=== PATIENT | female | born 1950 | race Caucasian/White ===

== ENCOUNTER 2017-02-10 13:56 | Inpatient (IN) | payer MEDICARE ==
[~2017-02-10] VITALS: Ht 165.1 cm; Wt 64.0 kg
[~2017-02-10 13:56] MED LIST: ACET325T15 PO; ASPI-183 PO; ATOR20TA15 PO; COLA100C5 PO; FAMO1TAB37 PO; FAMO20TA2 PO; LIPI20TA PO; LISI10TA3 PO; MAG-LIQ PO; METO25TA3 PO; METO50TA PO; QUAD CANE/SMALL1 MI1; Shower Chair; TRANSPORT CHAIR1 MIS; TYLE325T PO; WHEEMIS3
[2017-02-10] MEDS ORDERED: GADODIAMIDE PF 287 MG/ML 20 ML VIAL (for RAD MRI) IVCONTRAST ONE (13:57)
[2017-02-10 13:59] VITALS: BP 115/56; PULSE 62; RESP 16; TEMP 98.2; O2SAT 95
--- NOTE | 2017-02-10 15:43 | PD ---
HPI Chief Complaint: Fall Time Seen by Provider: 15:19 Travel History International Travel<30 days: No Contact w/Intl Traveler<30days: No Traveled to known affect area: No History of Present Illness HPI 66-year-old female was brought in by family member for left-sided facial drooping, slurred speech, left arm left leg weakness. Patient was admitted to 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 Patient was discharged from the hospital and admitted to rehabilitation facility at [facility] on January 20. Patient was discharged from the rehabilitation facility on February 04 to home with home health care and physical occupation and speech therapy. Patient states that she tripped and fell yesterday morning. Patient states that she landed on her left shoulder. Patient denies head injury. Patient denies any headache. Patient denies any visual change. Patient denies any neck pain. Patient complains of weakness of the left arm and left leg since the fall. Patient denies any chest pain or shortness of breath. Patient denies abdominal pain. Patient denies any back pain. Patient denies any nausea vomiting. Patient states that after the stroke in the beginning of January, her left arm and left leg weakness much improved with physical therapy and rehabilitation however is worse since the fall yesterday. Patient states that she was able to ambulate by herself at home after discharge from rehabilitation. Patient states that she is unable to empty since yesterday. PFSH Past Medical History Arthritis: No Asthma: No Autoimmune Disease: No Anxiety: No Depression: No Heart Rhythm Problems: No Cancer: No Cardiovascular Problems: No High Cholesterol: No Chest Pain: No Congestive Heart Failure: No COPD: No Cerebrovascular Accident: Yes (LEFT SIDE DEFICIT) Diabetes: No Endocrine: No GERD: No Genitourinary: No Hiatal Hernia: No Immune Disorder: No Kidney Stones: No Musculoskeletal: No Neurologic: Yes Psychiatric: No Reproductive: Yes (Ectopic ) Respiratory: No Migraines: No Renal Failure: No Seizures: No Sleep Apnea: No Thyroid Disease: No Ulcer: No Past Surgical History Abdominal Surgery: Yes AICD: No Arteriovenous Shunt: No Body Medical Devices: n/a Cardiac Surgery: No Ear Surgery: No Endocrine Surgery: No Eye Surgery: No Genitourinary Surgery: No Gynecologic Surgery: Yes (Ectopic Preg) Insulin Pump: No Joint Replacement: No Oral Surgery: Yes (Extractions of Lignum teeth / Dentures Upper and Lower) Pacemaker: No Thoracic Surgery: No Social History Tobacco Use: No Substance Use: No Allergies-Medications (Allergen,Severity, Reaction): Coded Allergies: No Known Allergies (Verified , 02/10/17) Reported Meds & Prescriptions Reported Meds & Active Scripts Active Metoprolol Tartrate 25 Mg Tab 12.5 Mg PO BID 30 Days Reported Lisinopril 10 Mg Tab 10 Mg PO DAILY Pepcid (Famotidine) 20 Mg Tab 20 Mg PO BID Lipitor (Atorvastatin Calcium) 20 Mg Tab 20 Mg PO HS Aspirin 325 Mg Tab 325 Mg PO DAILY Review of Systems General / Constitutional: No: Fever Eyes: No: Visual changes HENT: No: Headaches Cardiovascular: No: Chest Pain or Discomfort Respiratory: No: Shortness of Breath Gastrointestinal: No: Abdominal Pain Genitourinary: No: Dysuria Musculoskeletal: Positive: Weakness, No: Pain Skin: No Rash Neurologic: No: Weakness Psychiatric: No: Depression Endocrine: No: Polydipsia Hematologic/Lymphatic: No: Easy Bruising Physical Exam Narrative GENERAL: Well-nourished, well-developed patient. SKIN: Focused skin assessment warm/dry. HEAD: Normocephalic. EYES: No scleral icterus. No injection or drainage. NECK: Supple, trachea midline. No JVD or lymphadenopathy. CARDIOVASCULAR: Regular rate and rhythm without murmurs, gallops, or rubs. RESPIRATORY: Breath sounds equal bilaterally. No accessory muscle use. GASTROINTESTINAL: Abdomen soft, non-tender, nondistended. MUSCULOSKELETAL: No cyanosis, or edema. BACK: Nontender without obvious deformity. No CVA tenderness. Neurologic exam: Patient's awake alert oriented 3. Patient has mild drooping on the left side of face, weakness of left arm and left leg. Unable to move much and left arm and left leg. Sensory function intact. Data Data Last Documented VS Vital Signs Date Time Temp Pulse Resp B/P (MAP) Pulse Ox O2 Delivery O2 Flow Rate FiO2 02/10/17 19:51 Room Air 02/10/17 19:07 59 15 96 02/10/17 13:59 98.2 Orders Orders Electrocardiogram (02/10/17 15:30) Complete Blood Count With Diff (02/10/17 15:30) Comprehensive Metabolic Panel (02/10/17 15:30) Prothrombin Time / Inr (Pt) (02/10/17 15:30) Act Partial Throm Time (Ptt) (02/10/17 15:30) Urinalysis - C+S If Indicated (02/10/17 15:30) Thyroid Stimulating Hormone (02/10/17 15:30) Chest, Single Ap (02/10/17 15:30) Ct Brain W/O Iv Contrast(Rout) (02/10/17 15:30) Iv Access Insert/Monitor (02/10/17 15:30) Ecg Monitoring (02/10/17 15:30) Oximetry (02/10/17 15:30) Mri Brain W/O Contrast (02/10/17 16:35) Mra Brain W/O Contrast (Cow) (02/10/17 16:35) Mra Carotids W Contrast (02/10/17 16:35) Gadodiamide Pf Inj (Omniscan Pf Inj) (02/10/17 13:57) Aspirin Chew (Aspirin Chew) (02/10/17 19:30) Consult Neurology (02/10/17 ) Admit Order (Ed Use Only) (02/10/17 19:19) (Hub Use Only)Inp Phy Cons/Ref (02/10/17 ) Clopidogrel (Plavix) (02/10/17 19:45) Clopidogrel (Plavix) (02/11/17 09:00) Atorvastatin (Lipitor) (02/10/17 21:00) Famotidine (Pepcid) (02/10/17 21:00) Place In Observation (02/10/17 ) Vital Signs (Adult) Q4H (02/10/17 20:10) Activity Bed Rest (02/10/17 20:10) Senior Sustainability Consultant / Telemetry .CONTINUOUS (02/10/17 20:10) Diet Npo (02/11/17 Breakfast) Sodium Chloride 0.9% Flush (Ns Flush) (02/10/17 20:15) Sodium Chloride 0.9% Flush (Ns Flush) (02/10/17 21:00) Acetaminophen (Tylenol) (02/10/17 20:15) Ondansetron Inj (Zofran Inj) (02/10/17 20:15) Resp Oxygen Keenan C Titrat 1-4 L (02/10/17 ) Pt Request For Service (02/10/17 20:10) Ot Request For Service (02/10/17 20:10) Speech Therapy Consult-Eval/Tx (02/10/17 20:10) Zolpidem (Ambien) (02/10/17 20:15) Heparin Inj (Heparin Inj) (02/11/17 08:15) Scd Bilateral/Knee High JORDY.BID (02/10/17 20:10) Jason Bilateral/Knee High JORDY.QSHIFT (02/10/17 22:00) Naloxone Inj (Narcan Inj) (02/10/17 20:15) Docusate Sodium-Senna (Magnolia-Colace) (02/10/17 21:00) Magnesium Hydroxide Liq (Milk Of Magnesi (02/10/17 20:15) Sennosides (Senokot) (02/10/17 20:15) Bisacodyl Supp (Dulcolax Supp) (02/10/17 20:15) Lactulose Liq (Lactulose Liq) (02/10/17 20:15) Labs Laboratory Tests Test 02/10/17 16:20 White Blood Count 8.1 TH/MM3 Red Blood Count 4.67 MIL/MM3 Hemoglobin 13.4 GM/DL Hematocrit 39.7 % Mean Corpuscular Volume 85.0 FL Mean Corpuscular Hemoglobin 28.7 PG Mean Corpuscular Hemoglobin Concent 33.8 % Red Cell Distribution Width 14.2 % Platelet Count 217 TH/MM3 Mean Platelet Volume 8.9 FL Neutrophils (%) (Auto) 66.9 % Lymphocytes (%) (Auto) 20.6 % Monocytes (%) (Auto) 9.9 % Eosinophils (%) (Auto) 1.8 % Basophils (%) (Auto) 0.8 % Neutrophils # (Auto) 5.4 TH/MM3 Lymphocytes # (Auto) 1.7 TH/MM3 Monocytes # (Auto) 0.8 TH/MM3 Eosinophils # (Auto) 0.1 TH/MM3 Basophils # (Auto) 0.1 TH/MM3 CBC Comment DIFF FINAL Differential Comment Prothrombin Time 10.7 SEC Prothromb Time International Ratio 1.0 RATIO Activated Partial Thromboplast Time 24.5 SEC Blood Urea Nitrogen 16 MG/DL Creatinine 0.97 MG/DL Random Glucose 90 MG/DL Total Protein 7.9 GM/DL Albumin 3.8 GM/DL Calcium Level 8.9 MG/DL Alkaline Phosphatase 115 U/L Aspartate Amino Transf (AST/SGOT) 16 U/L Alanine Aminotransferase (ALT/SGPT) 20 U/L Total Bilirubin 0.7 MG/DL Sodium Level 138 MEQ/L Potassium Level 4.3 MEQ/L Chloride Level 102 MEQ/L Carbon Dioxide Level 28.7 MEQ/L Anion Gap 7 MEQ/L Estimat Glomerular Filtration Rate 57 ML/MIN Thyroid Stimulating Hormone 3rd Gen 1.400 uIU/ML MDM Medical Decision Making Medical Screen Exam Complete: Yes Emergency Medical Condition: Yes Interpretation(s) [address] scan of the brain show area of low attenuation right frontal lobe could be subacute infarct. MRI recommended. Chest x-ray showed minimal right basilar atelectasis. Differential Diagnosis Differential diagnosis including acute on chronic CVA, intracranial hemorrhage. Narrative Course 66-year-old female with new-onset of left-sided facial drooping, mild slurring speech, left arm left leg weakness. History of right hemisphere CVA in the past. Status post fall yesterday. Increasing symptoms since yesterday. Diagnosis Primary Impression: Acute cerebrovascular accident (CVA) Олег Calderon MD Feb 10, 2017 15:43
--- NOTE | 2017-02-10 15:53 | RADRPT ---
EXAM DATE/TIME: 02/10/2017 15:45 [facility] COMPARISON: No previous studies available for comparison. INDICATIONS : Short of breath, possible CVA. MEDICAL HISTORY : None. SURGICAL HISTORY : None. ENCOUNTER: Initial ACUITY: 1 day PAIN SCORE: 0/10 LOCATION: Bilateral chest FINDINGS: A single view of the chest demonstrates minimal linear density right lung base. Left lung clear. Hear t normal in size. Mediastinum unremarkable. Osseous structures are intact. CONCLUSION: 1. Minimal right basilar atelectasis. Arnie Lacy MD on February 10, 2017 at 15:47 Board Certified Radiologist. This report was verified electronically.
--- NOTE | 2017-02-10 16:07 | RADRPT ---
EXAM DATE/TIME: 02/10/2017 15:57 [facility] COMPARISON: No previous studies available for comparison. INDICATIONS : Head pain due to fall. RADIATION DOSE: 32.93 CTDIvol (mGy) MEDICAL HISTORY : Hypertension. Cerebrovascular disease. SURGICAL HISTORY : None. ENCOUNTER: Initial ACUITY: 2 days PAIN SCALE: 4/10 LOCATION: Bilateral cranial TECHNIQUE: Multiple contiguous axial images were obtained of the head. Using automated exposure control and adj ustment of the mA and/or kV according to patient size, radiation dose was kept as low as reasonably a chievable to obtain optimal diagnostic quality images. DICOM format image data is available electro nically for review and comparison. FINDINGS: CEREBRUM: Areas of low attenuation throughout the right frontal lobe. No significant mass effect or midline carol ft. Ventricles are patent. No evidence of midline shift, mass lesion, hemorrhage. No extra-axial fl uid collections are seen. POSTERIOR FOSSA: The cerebellum and brainstem are intact. The 4th ventricle is midline. The cerebellopontine angle i s unremarkable. EXTRACRANIAL: The visualized portion of the orbits is intact. SKULL: The calvaria is intact. No evidence of skull fracture. CONCLUSION: 1. Areas of low attenuation in the right frontal lobe could be subacute infarct. Contrast MRI recomme nded. 2. No midline shift or mass effect. 3. No hemorrhage seen. Arnie Lacy MD on February 10, 2017 at 16:03 Board Certified Radiologist. This report was verified electronically.
[2017-02-10 16:28] VITALS: O2SAT 98
[2017-02-10 16:45] LABS: AUTOMATED NEUTROPHIL # 5.4 TH/MM3 (1.8-7.7); BASOPHIL # 0.1 TH/MM3 (0-0.2); BASOPHIL % 0.8 % (0.0-2.0); EOSINOPHIL # 0.1 TH/MM3 (0-0.4); EOSINOPHIL % 1.8 % (0.0-4.0); HEMATOCRIT 39.7 % (35.0-46.0); HEMOGLOBIN 13.4 GM/DL (11.6-15.3); LYMPH % 20.6 % (9.0-44.0); LYMPHOCYTE # 1.7 TH/MM3 (1.0-4.8); MEAN CORPUSCULAR HEMOGLOBIN 28.7 PG (27.0-34.0); MEAN CORPUSCULAR HGB CONC 33.8 % (32.0-36.0); MEAN PLATELET VOLUME 8.9 FL (7.0-11.0); MONO % 9.9 % (0.0-8.0); MONOCYTE # 0.8 TH/MM3 (0-0.9); NEUT % 66.9 % (16.0-70.0); PLATELET COUNT 217 TH/MM3 (150-450); RED BLOOD COUNT 4.67 MIL/MM3 (4.00-5.30); RED CELL DISTRIBUTION WIDTH 14.2 % (11.6-17.2); WHITE BLOOD COUNT 8.1 TH/MM3 (4.0-11.0)
[2017-02-10 16:53] LABS: PROTHROMBIN TIME - PATIENT 10.7 SEC (9.8-11.6)
[2017-02-10 17:00] LABS: ALBUMIN 3.8 GM/DL (3.4-5.0); ALT (GPT) 20 U/L (10-53); AST (GOT) 16 U/L (15-37); BICARBONATE 28.7 MEQ/L (21.0-32.0); BLOOD UREA NITROGEN 16 MG/DL (7-18); CALCIUM 8.9 MG/DL (8.5-10.1); CHLORIDE 102 MEQ/L (98-107); CREATININE 0.97 MG/DL (0.50-1.00); GLOMERULAR FILTRATION RATE 57 ML/MIN (>89); GLUCOSE,RANDOM 90 MG/DL (74-106); SODIUM (NA) 138 MEQ/L (136-145)
[2017-02-10 17:10] LABS: ALKALINE PHOSPHATASE 115 U/L (45-117); TOTAL BILIRUBIN ADULT 0.7 MG/DL (0.2-1.0); TOTAL PROTEIN 7.9 GM/DL (6.4-8.2)
--- NOTE | 2017-02-10 17:29 | PD ---
Physical Exam Date Seen by Provider: Feb 10, 2017 Data Data Last Documented VS Vital Signs Date Time Temp Pulse Resp B/P (MAP) Pulse Ox O2 Delivery O2 Flow Rate FiO2 02/10/17 19:07 59 15 133/62 (85) 96 Room Air 02/10/17 13:59 98.2 Orders Orders Electrocardiogram (02/10/17 15:30) Complete Blood Count With Diff (02/10/17 15:30) Comprehensive Metabolic Panel (02/10/17 15:30) Prothrombin Time / Inr (Pt) (02/10/17 15:30) Act Partial Throm Time (Ptt) (02/10/17 15:30) Urinalysis - C+S If Indicated (02/10/17 15:30) Thyroid Stimulating Hormone (02/10/17 15:30) Chest, Single Ap (02/10/17 15:30) Ct Brain W/O Iv Contrast(Rout) (02/10/17 15:30) Iv Access Insert/Monitor (02/10/17 15:30) Ecg Monitoring (02/10/17 15:30) Oximetry (02/10/17 15:30) Mri Brain W/O Contrast (02/10/17 16:35) Mra Brain W/O Contrast (Cow) (02/10/17 16:35) Mra Carotids W Contrast (02/10/17 16:35) Gadodiamide Pf Inj (Omniscan Pf Inj) (02/10/17 13:57) Aspirin Chew (Aspirin Chew) (02/10/17 19:30) Consult Neurology (02/10/17 ) Admit Order (Ed Use Only) (02/10/17 19:19) Labs Laboratory Tests Test 02/10/17 16:20 White Blood Count 8.1 TH/MM3 Red Blood Count 4.67 MIL/MM3 Hemoglobin 13.4 GM/DL Hematocrit 39.7 % Mean Corpuscular Volume 85.0 FL Mean Corpuscular Hemoglobin 28.7 PG Mean Corpuscular Hemoglobin Concent 33.8 % Red Cell Distribution Width 14.2 % Platelet Count 217 TH/MM3 Mean Platelet Volume 8.9 FL Neutrophils (%) (Auto) 66.9 % Lymphocytes (%) (Auto) 20.6 % Monocytes (%) (Auto) 9.9 % Eosinophils (%) (Auto) 1.8 % Basophils (%) (Auto) 0.8 % Neutrophils # (Auto) 5.4 TH/MM3 Lymphocytes # (Auto) 1.7 TH/MM3 Monocytes # (Auto) 0.8 TH/MM3 Eosinophils # (Auto) 0.1 TH/MM3 Basophils # (Auto) 0.1 TH/MM3 CBC Comment DIFF FINAL Differential Comment Prothrombin Time 10.7 SEC Prothromb Time International Ratio 1.0 RATIO Activated Partial Thromboplast Time 24.5 SEC Blood Urea Nitrogen 16 MG/DL Creatinine 0.97 MG/DL Random Glucose 90 MG/DL Total Protein 7.9 GM/DL Albumin 3.8 GM/DL Calcium Level 8.9 MG/DL Alkaline Phosphatase 115 U/L Aspartate Amino Transf (AST/SGOT) 16 U/L Alanine Aminotransferase (ALT/SGPT) 20 U/L Total Bilirubin 0.7 MG/DL Sodium Level 138 MEQ/L Potassium Level 4.3 MEQ/L Chloride Level 102 MEQ/L Carbon Dioxide Level 28.7 MEQ/L Anion Gap 7 MEQ/L Estimat Glomerular Filtration Rate 57 ML/MIN Thyroid Stimulating Hormone 3rd Gen 1.400 uIU/ML MDM Medical Record Reviewed: Yes Supervised Visit with JOSE: No Narrative Course Patient signed out to me by Dr. Calderon at change of shift. Please see previous records for full hpi and workup of patient Patient currently pending MRI of brain and admission to hospital. Patient currently with no complaints at this time. Last Impressions Head Magnetic Resonance Angiography 02/10/171634 Signed Impressions: Service Date/Time: February 18:08 - CONCLUSION: 1. There is no flow in the right middle cerebral artery and its distal branches. 2. Portions of the right anterior communicating artery are abnormal and not visualized as well. 3. There is no right posterior communicating artery. 4. The left posterior cerebral artery is smaller in size than the right and the distal posterior branches are absent. Dariusz Mora MD Brain MRI 02/10/17 1635 Signed Impressions: Service Date/Time: February 18:08 - CONCLUSION: 1. Acute to subacute infarction involving the right middle cerebral artery territory with edema. There is no mass effect or midline shift. 2. No evidence of hemorrhage. Dariusz Mora MD Head CT 02/10/17 1530 Signed Impressions: Service Date/Time: February 15:57 - CONCLUSION: 1. Areas of low attenuation in the right frontal lobe could be subacute infarct. Contrast MRI recommended. 2. No midline shift or mass effect. 3. No hemorrhage seen. Arnie Lacy MD Chest X-Ray 02/10/17 1530 Signed Impressions: Service Date/Time: February 15:45 - CONCLUSION: 1. Minimal right basilar atelectasis. Arnie Lacy MD MRI of brain concerning for an acute distress. Infarction in the right middle cerebral artery with edema. Patient will be given an asa, she will require admission to the hospital at this time. case reviewed with Dr. Chang who accepts pt to service. Request neurology consult and input tonight. Call made to Dr. Rudolph who is insulation machine operator. Case reviewed with Dr. Rudolph who request patient be placed on plavix 75bpm, Critical Care Narrative Aggregate critical care time was 30 minutes. Time to perform other separately billable procedures was not included in the critical care time. My time did not include minutes spent treating any other patients simultaneously or on activities that did not directly contribute to the patient's treatment. The services I provided to this patient were to treat and/or prevent clinically significant deterioration that could result in: , decompensation, deterioration I provided critical care services requiring my management, as noted below: Chart data review, documentation time, medication orders and management, vital sign assessments/reviewing monitor data, ordering and reviewing lab tests, ordering and interpreting/reviewing x-rays and diagnostic studies, care of the patient and discussion of the patient with the admitting physicians. Diagnosis Primary Impression: Acute cerebrovascular accident (CVA) Additional Impression: Occlusion of right middle cerebral artery Admitting Information Admitting Physician Requests: Admit Lilia Montgomery DO Feb 10, 2017 17:29
--- NOTE | 2017-02-10 18:39 | RADRPT ---
EXAM DATE/TIME: 02/10/2017 18:08 [facility] COMPARISON: No previous studies available for comparison. INDICATIONS : Cerebral vascular accident with left-sided weakness. Abnormal head CT.. MEDICAL HISTORY : Hypertension. SURGICAL HISTORY : Ectopic . ENCOUNTER: Initial ACUITY: 1 day PAIN SCORE: 0/10 LOCATION: Head. TECHNIQUE: Multiplanar, multisequence MRI of the brain was performed without contrast. FINDINGS: CEREBRUM: The ventricles are normal for age. No evidence of midline shift, mass lesion, or hemorrhage. No ext raaxial fluid collections are seen. The pituitary gland and suprasellar cistern are normal in config uration. WHITE MATTER: Increased signal is noted on the flair weighted images the right middle cerebral artery territory con sistent with edema. POSTERIOR FOSSA: The cerebellum and brainstem are intact. The 4th ventricle is midline. The cerebellopontine angle is unremarkable. The cerebellar tonsils are normal in position. DIFFUSION IMAGING: There is a large area of restricted diffusion involving the right middle cerebral artery territory in volving portions of the posterior right frontal lobe and parietal lobe as well as portions of the lat eral right basal ganglia. EXTRACRANIAL: The visualized portions of the orbits and paranasal sinuses are unremarkable. CONCLUSION: 1. Acute to subacute infarction involving the right middle cerebral artery territory with edema. Ther e is no mass effect or midline shift. 2. No evidence of hemorrhage. Dariusz Mora MD on February 10, 2017 at 18:34 Board Certified Radiologist. This report was verified electronically.
--- NOTE | 2017-02-10 18:44 | RADRPT ---
EXAM DATE/TIME: 02/10/2017 18:08 [place]RE[place] Corrected on: February 10, 2017; [facility] COMPARISON: No previous studies available for comparison. INDICATIONS : CVA. Left sided weakness. MEDICAL HISTORY : Hypertension. SURGICAL HISTORY : Ectopic . ENCOUNTER: Initial ACUITY: 1 day PAIN SCORE: 0/10 LOCATION: Head. Please note a normal MRA of the brain does not entirely exclude the possibility of a small aneurysm, nor the possibility of distal intracranial vessel disease. TECHNIQUE: 3D time of flight MRA was performed. Source images, multiplanar STS MIP, and 3D volume MIP reconstru ctions were reviewed. FINDINGS: There is occlusion of the right internal carotid artery as well as the right middle cerebral artery. The right anterior communicating artery is abnormal in the anterior portion is missing.. There is no right posterior communicating artery. The left anterior commuting artery and middle cerebral artery a re intact. The anterior cerebral arteries are symmetric and intact. The right posterior cerebral lauren ry is intact. The left is smaller in size as lacking the more posterior distal branches. There is no visualized aneurysm. CONCLUSION: 1. Occlusion of the right internal carotid artery and right middle cerebral artery. 2. Portions of the right anterior communicating artery are abnormal 3. There is no right posterior communicating artery. 4. The left posterior cerebral artery is smaller in size than the right and the distal posterior bran ches are absent. Dariusz Mora MD on February 10, 2017 at 18:37 Board Certified Radiologist. This report was verified electronically. Dariusz Mora MD on February 10, 2017 at 19:39 Board Certified Radiologist. This report was verified electronically.
[2017-02-10 19:07] VITALS: BP 133/62; PULSE 59; RESP 15; O2SAT 96
[2017-02-10] MEDS ORDERED: ASPIRIN 81 MG CHEW TAB CHEW ONE (19:30)
--- NOTE | 2017-02-10 19:39 | RADRPT ---
EXAM DATE/TIME: 02/10/2017 18:08 [facility] COMPARISON: MRA BRAIN W/O CONTRAST, February 10, 2017, 18:08. INDICATIONS : . Right middle cerebral artery infarct with left-sided weakness.. CONTRAST: 20 cc Omniscan (gadodiamide) IV MEDICAL HISTORY : Hypertension. SURGICAL HISTORY : Ectopic . ENCOUNTER: Initial ACUITY: 1 day PAIN SCORE: 0/10 LOCATION: Head. Percent stenosis is calculated using the diameter of the stenotic region over the diameter of the nor mal distal internal carotid artery. TECHNIQUE: Bolus infused MRA of the extracranial circulation was performed using a neurovascular coil. Post pro cessing was performed including rotating subvolume maximum intensity projections of each carotid lauren ry, rotating full volume maximum intensity projections of both carotid arteries, sagittal and coronal sliding thin slab reformations of each carotid artery, and left oblique sliding thin slab reformatio n through the aortic arch to include the origin of the arch branch vessels. FINDINGS: AORTIC ARCH: There is a three vessel origin of the great vessels from the aorta. No evidence of ostial narrowing. RIGHT CAROTID: The common carotid artery is intact. The carotid bulb has a normal configuration without ulceration or narrowing. The right internal carotid artery is occluded just after its origin. The external carot id artery is intact. LEFT CAROTID: The common carotid artery is intact. The carotid bulb demonstrates mild to moderate lobular plaque w ith approximate 50% diameter stenosis. The internal carotid artery lumen is smooth without stenosis. The external carotid artery is intact. VERTEBRALS: The vertebral arteries have a symmetric diameter. No stenotic lesions are seen. CONCLUSION: 1. Occlusion of the right internal carotid artery right after the origin. 2. Mild to moderate plaque in left common carotid artery with approximate 50% stenosis. 3. Please see MRA of the brain for further details on the intracranial circulation. Dariusz Mora MD on February 10, 2017 at 19:32 Board Certified Radiologist. This report was verified electronically.
[2017-02-10] MEDS ORDERED: CLOPIDOGREL 75 MG TAB PO ONE (19:45)
[2017-02-10] MEDS ORDERED: MAGNESIUM HYDROXIDE SUSP 30 ML CUP PO PRN (20:15)
[2017-02-10] MEDS ORDERED: LACTULOSE SYRUP 20 GM/30 ML CUP PO PRN (20:15)
[2017-02-10] MEDS ORDERED: ONDANSETRON HCL 4 MG/2 ML VIAL IVP PRN (20:15)
[2017-02-10] MEDS ORDERED: ACETAMINOPHEN 325 MG TAB PO PRN (20:15)
[2017-02-10] MEDS ORDERED: ZOLPIDEM TARTRATE 5 MG TAB PO PRN (20:15)
[2017-02-10] MEDS ORDERED: BISACODYL 10 MG SUPP RECTAL PRN (20:15)
[2017-02-10] MEDS ORDERED: SODIUM CHLORIDE 0.9% FLUSH 10 ML FLUSH IV FLUSH PRN (20:15)
[2017-02-10] MEDS ORDERED: NALOXONE HCL 0.4 MG/ML AMP IV PUSH PRN (20:15)
[2017-02-10] MEDS ORDERED: SENNOSIDES 8.6 MG TAB PO PRN (20:15)
[2017-02-10] MEDS ORDERED: LORazepam 0.5 MG TAB PO PRN (20:30)
[2017-02-10] MEDS ORDERED: ACETAMINOPHEN/HYDROcodone 325 MG/5 MG TAB PO PRN (20:30)
[2017-02-10] MEDS: SODIUM CHLORIDE 0.9% FLUSH 10 ML FLUSH IV FLUSH SCH (22:32)
[2017-02-10] MEDS: ATORVASTATIN 20 MG TAB PO SCH (22:32)
[2017-02-10] MEDS: FAMOTIDINE 20 MG TAB PO SCH (22:32)
[2017-02-10] MEDS: DEXT 5%-NACL 0.45% 1000 ML INJ 1,000 ML IV SCH (22:33)
[2017-02-10] MEDS: DOCUSATE SODIUM 50 MG/SENNA 8.6 MG TAB PO SCH (22:33)
[2017-02-10 22:52] VITALS: PULSE 63
[2017-02-11] VITALS (11 sets, daily range): BP systolic 121–145; BP diastolic 57–68; PULSE 50–77; RESP 16–20; TEMP 97.6–98.2; O2SAT 94–96
[2017-02-11 07:17] LABS: BASOPHIL % 0.9 % (0.0-2.0); EOSINOPHIL # 0.2 TH/MM3 (0-0.4); EOSINOPHIL % 2.6 % (0.0-4.0); HEMATOCRIT 35.6 % (35.0-46.0); HEMOGLOBIN 12.1 GM/DL (11.6-15.3); LYMPH % 31.8 % (9.0-44.0); LYMPHOCYTE # 1.8 TH/MM3 (1.0-4.8); MEAN CELL VOLUME 84.7 FL (80.0-100.0); MEAN CORPUSCULAR HEMOGLOBIN 28.7 PG (27.0-34.0); MEAN CORPUSCULAR HGB CONC 33.9 % (32.0-36.0); MONO % 12.6 % (0.0-8.0); MONOCYTE # 0.7 TH/MM3 (0-0.9); NEUT % 52.1 % (16.0-70.0); PLATELET COUNT 169 TH/MM3 (150-450); RED BLOOD COUNT 4.21 MIL/MM3 (4.00-5.30); WHITE BLOOD COUNT 5.8 TH/MM3 (4.0-11.0)
[2017-02-11 07:57] LABS: BICARBONATE 26.8 MEQ/L (21.0-32.0); CALCIUM 8.8 MG/DL (8.5-10.1); CREATININE 0.71 MG/DL (0.50-1.00)
[2017-02-11] MEDS: FAMOTIDINE 20 MG TAB PO SCH ×2 (08:12→21:24)
[2017-02-11] MEDS: HEPARIN SODIUM - SQ 10,000 UNITS/ML VIAL SQ SCH ×2 (08:13→21:23)
[2017-02-11] MEDS: CLOPIDOGREL 75 MG TAB PO SCH (08:13)
[2017-02-11] MEDS: DOCUSATE SODIUM 50 MG/SENNA 8.6 MG TAB PO SCH ×2 (08:13→21:24)
[2017-02-11] MEDS: SODIUM CHLORIDE 0.9% FLUSH 10 ML FLUSH IV FLUSH SCH ×2 (08:13→21:23)
--- NOTE | 2017-02-11 10:04 | EKG ---
Date Performed: 02/10/2017 Time Performed: 16:12:25 PTAGE: 66 years EKG: SINUS BRADYCARDIA SEPTAL MYOCARDIAL INFARCTION ABNORMAL ECG NO PREVIOUS TRACING DOCTOR: Marin Chavarria Interpretating Date/Time 02/11/2017 10:03:36
--- NOTE | 2017-02-11 10:06 | EKG ---
Date Performed: 02/10/2017 Time Performed: 19:57:22 PTAGE: 66 years EKG: SINUS BRADYCARDIA LEFT AXIS DEVIATION ABNORMAL ECG PREVIOUS TRACING : 02/10/2017 16.12 Compared to prior tracing no significant change DOCTOR: Marin Chavarria Interpretating Date/Time 02/11/2017 10:04:49
--- NOTE | 2017-02-11 10:22 | MH ---
cc: LANE EVERETT MD DATE OF ADMISSION 02/10/2017 CHIEF COMPLAINT Fall and left-sided weakness. HISTORY OF PRESENT ILLNESS Everette Magana is a 66-year-old female recently discharged from [facility] after having a right hemisphere CVA. She was discharged on 02/03/2017 and continued on aspirin and statin and AFO. She unfortunately yesterday morning fell and noted increased left-sided weakness on top of the area that was already weak on the left side. She presented to [place] emergency room and I was thus called for admission. She was found to have slurred speech and the emergency room physician spoke with the neurologist and he ordered Plavix. CT scan showed a subacute infarct. Further images as noted below. The patient states that she now has worsened left-sided weakness. She complains of some shoulder soreness. States she quit smoking a few weeks ago. Brain MRI shows acute to subacute infarction. Head MRA shows occlusion of the right internal carotid artery, left cerebral artery is smaller in size. Neck MRI shows occlusion of the right internal carotid artery and plaquing with approximately 50% stenosis. Chest x-ray shows minimal right basilar atelectasis. LABORATORY DATA BMP is normal. GFR 82. CBC within normal limits. INR 1.0. PAST MEDICAL HISTORY 1. Right hemisphere CVA 2. Left hemiparesis 3. Carotid stenosis 4. Hypertension 5. Tobacco abuse 6. Gait instability 7. Diastolic CHF SOCIAL HISTORY She quit cigarettes a couple of weeks ago. No alcohol or illicit drug usage. FAMILY HISTORY States her father had heart disease, otherwise noncontributory on her family history. HOME MEDICATIONS 1. Aspirin 325 daily 2. Atorvastatin 20 3. Famotidine 4. Lisinopril 10 5. Metoprolol tartrate 12.5 b.i.d. 6. Nitroglycerin p.r.n. REVIEW OF SYSTEMS Increased left-sided hemiparesis and generalized weakness. Negative 14-point review of systems otherwise. PHYSICAL EXAM VITAL SIGNS: Temperature 98.2, pulse 58, respirations 20, blood pressure 126/57, O2 is 95% on room air. GENERAL: She is alert elderly female sitting at a slight incline. She is alert. She is does seem to have some right-sided gaze preference. HEENT: Oropharynx is clear. NECK: Carotids are normal on the left with normal upstroke. CARDIOVASCULAR: Regular rate and rhythm. No murmurs, rubs, clicks or gallops. ABDOMEN: Soft, nontender. EXTREMITIES: No edema. SKIN: Clear. NEUROLOGIC: Cranial nerves are grossly intact. Left hemiparesis with strength of 1/5 on the right side is 3/5. EXTREMITIES: No edema. ASSESSMENT 1. Acute CVA 2. Left hemiparesis 3. Hypertension 4. Carotid artery disease 5. Smoker, recently quit. PLAN 1. Observation admission. The patient likely will discharge if okay with neurology may be tomorrow. 2. N.p.o. for now until seen by speech therapy. 3. D5 IV fluids 4. A.m. CBC and BMP 5. Urinalysis 6. Permissive hypertension 7. Start Plavix 75 mg daily 8. Lipitor 20 mg at bedtime 9. GI prophylaxis with Pepcid b.i.d. 10. DVT prophylaxis heparin 5000 units subcu q.12 h. 11. Telemetry 12. Physical therapy 13. Occupational therapy 14. Speech therapy 15. Neurology consult 16. The patient states that Dr. Correa has just seen her. 17. We will follow as an outpatient. Lane Everett MD RP/TRICIA /9:46 AM /10:07 AM
--- NOTE | 2017-02-11 15:12 | MB ---
cc: HERNÁN DAN MD DATE OF CONSULTATION: 02/11/2017. REASON FOR CONSULTATION: Stroke. HISTORY OF PRESENT ILLNESS: Ms. Magana is a 66-year-old female who suffered from a stroke on January 13 with right MCA stroke with left-sided weakness upper and lower extremities. She was discharged to [facility] and continued on aspirin and statin. Yesterday morning she fell and noted increased left-sided weakness and was noted by a family member to have slurred speech and face droop. Head CT scan showed a subacute infarct and Plavix was added to her regime. She also complains of some left-sided shoulder pain. REVIEW OF SYSTEMS: A twelve-point review of systems was negative except as stated in the history of present illness. PAST MEDICAL HISTORY: 1. Recent right MCA stroke. 2. Carotid artery occlusion. 3. Hypertension. 4. Tobacco abuse. 5. Gait instability. 6. Congestive heart failure. PAST SURGICAL HISTORY: Noncontributory. HOME MEDICATIONS: 1. Aspirin. 2. Statin. 3. Famotidine. 4. Lisinopril. 5. Metoprolol. 6. Nitroglycerin. SOCIAL HISTORY: She quit cigarette smoking two weeks ago. Denies alcohol or illicit drug abuse. FAMILY HISTORY: Father with heart disease. PHYSICAL EXAMINATION: GENERAL: Awake, alert, oriented and good historian. Not in acute distress. HEAD, EYES, EARS, NOSE, THROAT: Normocephalic and atraumatic. Intact hearing. Intact vision. NECK: The neck is supple. No signs of meningeal irritation. CARDIOVASCULAR: Regular rate and rhythm. RESPIRATORY: Clear to auscultation. No wheezes. GASTROINTESTINAL: The abdomen is soft, nontender. EXTREMITIES: Weakness on the entire left side upper and lower extremities. No cyanosis. No clubbing. NEUROLOGICAL EXAMINATION: Awake, alert and oriented to time, person and place. No dysphasia. Positive for dysarthria. Left facial palsy. Intact facial sensation. Left upper and lower extremity pyramidal spastic weakness, upper extremities greater than lower extremities. Left Babinski. Right plantar downgoing. Reflexes 2+ bilateral symmetrical. Cerebellar function intact, slower on the left side. Intact sensation bilateral throughout. PSYCHIATRIC: Cooperative. Normal mood and behavior. DIAGNOSTIC TESTS: DIAGNOSTIC IMAGING: - Head CT scan without contrast revealed areas of low attenuation in the right frontal lobe which could be a subacute infarct, contrast MRI recommended. No midline shift. No hemorrhage seen. - Brain MRI without contrast revealed acute to subacute infarction involving the right middle cerebral artery territory with edema. There is no mass effect or midline shift. No evidence of hemorrhage. - Head MRA without contrast revealed occlusion of the right ICA and right middle cerebral artery. Portions of the right anterior communicating artery are abnormal. There is no right ANIMAL SITTER. The left ANIMAL SITTER is smaller in size than the right and the distal posterior branches are absent. - Neck MRA revealed occlusion of the right ICA after the origin. Mild to moderate plaque left common carotid artery with approximate 50% stenosis. LABS: White blood cells 5.8, hemoglobin 12.1. Potassium 135, sodium 139, BUN 14, creatinine 0.71. TSH 1.4. DIAGNOSTIC IMPRESSION: 1. Acute ischemic stroke. 2. History of remote acute ischemic stroke. 3. Right carotid artery and MCA occlusion. PLAN: 1. Neuro checks q. 1 hourly. 2. Allow permissive hypertension. 3. Treat for blood pressure greater than 220/110. 4. Physical therapy, occupational therapy and speech therapy. 5. Allow for permissive hypertension for the next 24 hours. 6. DVT prophylaxis. 7. Physical therapy and occupational therapy recommendations are appreciated. 8. Repeat CT next a.m. or if there is change in the neurologic status. Thank you for the opportunity to participate in the care of your patient. MD BHARTI Fraser/EMILE /2:12 PM /2:59 PM STANLEY
[2017-02-11] MEDS: ATORVASTATIN 20 MG TAB PO SCH (21:23)
[2017-02-11] MEDS: DEXT 5%-NACL 0.45% 1000 ML INJ 1,000 ML IV SCH (21:23)
[2017-02-12] VITALS (12 sets, daily range): BP systolic 122–170; BP diastolic 65–89; PULSE 20–91; RESP 18–20; TEMP 97.6–98.2; O2SAT 95–99
[2017-02-12 07:38] LABS: AUTOMATED NEUTROPHIL # 2.4 TH/MM3 (1.8-7.7); BASOPHIL % 0.9 % (0.0-2.0); EOSINOPHIL # 0.1 TH/MM3 (0-0.4); EOSINOPHIL % 2.7 % (0.0-4.0); HEMOGLOBIN 12.5 GM/DL (11.6-15.3); LYMPH % 36.7 % (9.0-44.0); LYMPHOCYTE # 1.9 TH/MM3 (1.0-4.8); MEAN CELL VOLUME 84.1 FL (80.0-100.0); MEAN CORPUSCULAR HEMOGLOBIN 28.3 PG (27.0-34.0); MEAN CORPUSCULAR HGB CONC 33.7 % (32.0-36.0); MEAN PLATELET VOLUME 8.7 FL (7.0-11.0); MONO % 12.4 % (0.0-8.0); MONOCYTE # 0.6 TH/MM3 (0-0.9); NEUT % 47.3 % (16.0-70.0); PLATELET COUNT 172 TH/MM3 (150-450); RED BLOOD COUNT 4.41 MIL/MM3 (4.00-5.30); RED CELL DISTRIBUTION WIDTH 13.9 % (11.6-17.2); WHITE BLOOD COUNT 5.1 TH/MM3 (4.0-11.0)
[2017-02-12 07:52] LABS: BICARBONATE 27.4 MEQ/L (21.0-32.0); CALCIUM 8.9 MG/DL (8.5-10.1); CREATININE 0.73 MG/DL (0.50-1.00)
[2017-02-12] MEDS: SODIUM CHLORIDE 0.9% FLUSH 10 ML FLUSH IV FLUSH SCH ×2 (09:00→21:00)
[2017-02-12] MEDS: CLOPIDOGREL 75 MG TAB PO SCH (10:52)
[2017-02-12] MEDS: FAMOTIDINE 20 MG TAB PO SCH ×2 (10:52→21:08)
[2017-02-12] MEDS: DOCUSATE SODIUM 50 MG/SENNA 8.6 MG TAB PO SCH ×2 (10:52→21:08)
[2017-02-12] MEDS: HEPARIN SODIUM - SQ 10,000 UNITS/ML VIAL SQ SCH ×2 (11:04→21:09)
--- NOTE | 2017-02-12 12:25 | HHI.PR ---
Review/Management Diagnosis 1. Acute ischemic stroke. 2. History of remote acute ischemic stroke. 3. Right carotid artery and MCA occlusion. Plan - Stable neurologic exam - Goal BP 130-135/75-80 - Aspirin 81mg daily - Plavix 75 mg daily - Resume home BP medications - Physical therapy, occupational therapy and speech therapy, recommendations are appreciated. - Patient needs inpatient rehab - Follow up with neurology as outpatient Diagnosis/Plan: Subjective Subjective Comments No acute events reported Denies headache, worsening weakness States that she feels better, denies facial numbness MRI brain revealed right MCA acute/subacute ischemia Active Medications Current Medications Medications (Trade) Dose Ordered Sig/Bebo Route Start Time Stop Time Status Last Admin (Plavix) 75 mg DAILY PO 02/11/17 09:00 02/12/17 10:52 (Lipitor) 20 mg HS PO 02/10/17 21:00 02/11/17 21:23 (Pepcid) 20 mg BID PO 02/10/17 21:00 02/12/17 10:52 (NS Flush) 2 ml UNSCH PRN IV FLUSH 02/10/17 20:15 (NS Flush) 2 ml BID IV FLUSH 02/10/17 21:00 02/11/17 21:23 (Tylenol) 650 mg Q4H PRN PO 02/10/17 20:15 (Zofran Inj) 4 mg Q6H PRN IVP 02/10/17 20:15 (Ambien) 5 mg HS PRN PO 02/10/17 20:15 (Heparin Inj) 5,000 units Q12H SQ 02/11/17 08:15 02/12/17 11:04 (Narcan Inj) 0.4 mg UNSCH PRN IV PUSH 02/10/17 20:15 (Magnolia-Colace) 1 tab BID PO 02/10/17 21:00 02/12/17 10:52 (Milk Of Magnesia Liq) 30 ml Q12H PRN PO 02/10/17 20:15 (Senokot) 17.2 mg Q12H PRN PO 02/10/17 20:15 (Dulcolax Supp) 10 mg DAILY PRN RECTAL 02/10/17 20:15 (Lactulose Liq) 30 ml DAILY PRN PO 02/10/17 20:15 (Ativan) 0.5 mg Q8H PRN PO 02/10/17 20:30 Dextrose/Sodium Chloride 1,000 ml @ 42 mls/hr [id number] IV 02/10/17 21:00 02/11/17 21:23 (Cheyenne 5-325 Mg) 1 tab Q4H PRN PO 02/10/17 20:30 Allergies Allergies Coded Allergies No Known Allergies ([id number]/2/17) Review of Systems All other ROS: ROS reviewed as documented in chart Exam I&O / VS Vital Signs Date Time Temp Pulse Resp B/P (MAP) Pulse Ox O2 Delivery O2 Flow Rate FiO2 02/12/17 11:44 97.9 78 20 125/82 (96) 97 02/12/17 09:00 98 21 02/12/17 07:49 98.2 68 18 128/80 (96) 96 02/12/17 04:51 21 02/12/17 04:41 97.7 78 19 122/65 (84) 97 02/12/17 04:00 91 02/12/17 00:18 72 02/12/17 00:16 97.6 80 18 133/66 (88) 95 02/11/17 21:32 97.6 77 18 145/68 (93) 96 02/11/17 20:02 69 02/11/17 15:17 58 02/11/17 12:39 72 Exam Comments GENERAL: Awake, alert, oriented and good historian. Not in acute distress. HEAD, EYES, EARS, NOSE, THROAT: Normocephalic and atraumatic. Intact hearing. Intact vision. NECK: The neck is supple. No signs of meningeal irritation. CARDIOVASCULAR: Regular rate and rhythm. RESPIRATORY: Clear to auscultation. No wheezes. GASTROINTESTINAL: The abdomen is soft, nontender. EXTREMITIES: Weakness on the entire left side upper and lower extremities. No cyanosis. No clubbing. NEUROLOGICAL EXAMINATION: Awake, alert and oriented to time, person and place. No dysphasia. mild dysarthria. Left facial palsy. Intact facial sensation. Left upper and lower extremity pyramidal spastic weakness, upper extremities greater than lower extremities. Left Babinski. Right plantar downgoing. Reflexes 2+ bilateral symmetrical. Cerebellar function intact, slower on the left side. Intact sensation bilateral throughout. PSYCHIATRIC: Cooperative. Normal mood and behavior. Objective Radiology Results Last 72 hours Impressions Neck Magnetic Resonance Angiography 02/10/17 1635 Signed Impressions: Service Date/Time: February 18:08 - CONCLUSION: 1. Occlusion of the right internal carotid artery right after the origin. 2. Mild to moderate plaque in left common carotid artery with approximate 50%% stenosis. 3. Please see MRA of the brain for further details on the intracranial circulation. Dariusz Mora MD Head Magnetic Resonance Angiography 02/10/17 1635 Signed Impressions: Service Date/Time: February 18:08 - CONCLUSION: 1. Occlusion of the right internal carotid artery and right middle cerebral artery. 2. Portions of the right anterior communicating artery are abnormal 3. There is no right posterior communicating artery. 4. The left posterior cerebral artery is smaller in size than the right and the distal posterior branches are absent. Dariusz Mora MD Brain MRI 02/10/17 1635 Signed Impressions: Service Date/Time: February 18:08 - CONCLUSION: 1. Acute to subacute infarction involving the right middle cerebral artery territory with edema. There is no mass effect or midline shift. 2. No evidence of hemorrhage. Dariusz Mora MD Head CT 02/10/17 1530 Signed Impressions: Service Date/Time: February 15:57 - CONCLUSION: 1. Areas of low attenuation in the right frontal lobe could be subacute infarct. Contrast MRI recommended. 2. No midline shift or mass effect. 3. No hemorrhage seen. Arnie Lacy MD Chest X-Ray 02/10/17 1530 Signed Impressions: Service Date/Time: February 15:45 - CONCLUSION: 1. Minimal right basilar atelectasis. Arnie Lacy MD Micro and Labs Laboratory Tests Test 02/12/17 06:20 White Blood Count 5.1 Red Blood Count 4.41 Hemoglobin 12.5 Hematocrit 37.0 Mean Corpuscular Volume 84.1 Mean Corpuscular Hemoglobin 28.3 Mean Corpuscular Hemoglobin Concent 33.7 Red Cell Distribution Width 13.9 Platelet Count 172 Mean Platelet Volume 8.7 Neutrophils (%) (Auto) 47.3 Lymphocytes (%) (Auto) 36.7 Monocytes (%) (Auto) 12.4 Eosinophils (%) (Auto) 2.7 Basophils (%) (Auto) 0.9 Neutrophils # (Auto) 2.4 Lymphocytes # (Auto) 1.9 Monocytes # (Auto) 0.6 Eosinophils # (Auto) 0.1 Basophils # (Auto) 0.0 CBC Comment DIFF FINAL Differential Comment Blood Urea Nitrogen 9 Creatinine 0.73 Random Glucose 102 Calcium Level 8.9 Sodium Level 141 Potassium Level 3.6 Chloride Level 105 Carbon Dioxide Level 27.4 Anion Gap 9 Estimat Glomerular Filtration Rate 80 Mckayla Correa MD Feb 12, 2017 12:25
--- NOTE | 2017-02-12 12:56 | HHI.PR ---
Subjective Remarks Patient seen and examined this morning. Afebrile vital signs stable. She is status post CVA, with the recommendations of inpatient rehabilitation. She was recently discharged from [facility] while at home she fell prior to this admission upon evaluation by OT and PT is recommended that she return to [facility] for continued inpatient physical therapy. Objective Vitals Vital Signs Date Time Temp Pulse Resp B/P (MAP) Pulse Ox O2 Delivery O2 Flow Rate FiO2 02/12/17 11:44 97.9 78 20 125/82 (96) 97 02/12/17 09:00 98 21 02/12/17 07:49 98.2 68 18 128/80 (96) 96 02/12/17 04:51 21 02/12/17 04:41 97.7 78 19 122/65 (84) 97 02/12/17 04:00 91 02/12/17 00:18 72 02/12/17 00:16 97.6 80 18 133/66 (88) 95 02/11/17 21:32 97.6 77 18 145/68 (93) 96 02/11/17 20:02 69 02/11/17 15:17 58 Result Diagram: 02/12/17 0620 02/12/17 0620 Imaging Last Impressions Neck Magnetic Resonance Angiography 02/10/171634 Signed Impressions: Service Date/Time: February 18:08 - CONCLUSION: 1. Occlusion of the right internal carotid artery right after the origin. 2. Mild to moderate plaque in left common carotid artery with approximate 50%% stenosis. 3. Please see MRA of the brain for further details on the intracranial circulation. Dariusz Mora MD Head Magnetic Resonance Angiography 02/10/171634 Signed Impressions: Service Date/Time: February 18:08 - CONCLUSION: 1. Occlusion of the right internal carotid artery and right middle cerebral artery. 2. Portions of the right anterior communicating artery are abnormal 3. There is no right posterior communicating artery. 4. The left posterior cerebral artery is smaller in size than the right and the distal posterior branches are absent. Dariusz Mora MD Brain MRI 02/10/171634 Signed Impressions: Service Date/Time: February 18:08 - CONCLUSION: 1. Acute to subacute infarction involving the right middle cerebral artery territory with edema. There is no mass effect or midline shift. 2. No evidence of hemorrhage. Dariusz Mora MD Head CT 02/10/170 Signed Impressions: Service Date/Time: February 15:57 - CONCLUSION: 1. Areas of low attenuation in the right frontal lobe could be subacute infarct. Contrast MRI recommended. 2. No midline shift or mass effect. 3. No hemorrhage seen. Arnie Lacy MD Chest X-Ray 02/10/171529 Signed Impressions: Service Date/Time: February 15:45 - CONCLUSION: 1. Minimal right basilar atelectasis. Arnie Lcay MD Objective Remarks GENERAL: Awake, alert, oriented and good historian. Not in acute distress. HEAD, EYES, EARS, NOSE, THROAT: Normocephalic and atraumatic. Intact hearing. Intact vision. NECK: The neck is supple. No signs of meningeal irritation. CARDIOVASCULAR: Regular rate and rhythm. RESPIRATORY: Clear to auscultation. No wheezes. GASTROINTESTINAL: The abdomen is soft, nontender. EXTREMITIES: Weakness on the entire left side upper and lower extremities. No cyanosis. No clubbing. NEUROLOGICAL EXAMINATION: Awake, alert and oriented to time, person and place. No dysphasia. mild dysarthria. Left facial palsy. Intact facial sensation. Left upper and lower extremity pyramidal spastic weakness, upper extremities greater than lower extremities. Cerebellar function intact, slower on the left side. Intact sensation bilateral throughout. PSYCHIATRIC: Cooperative. Normal mood and behavior. A/P Problem List: (1) Occlusion of right middle cerebral artery ICD Code: I66.01 - Occlusion and stenosis of right middle cerebral artery Status: Acute (2) Acute cerebrovascular accident (CVA) ICD Code: I63.9 - Cerebral infarction, unspecified Status: Acute (3) Impaired mobility and activities of daily living ICD Code: Z74.09 - Other reduced mobility Status: Acute (4) Gait instability ICD Code: R26.81 - Unsteadiness on feet Status: Acute (5) Right hemisphere, cerebral infarction ICD Code: I63.9 - Cerebral infarction, unspecified Status: Acute (6) Fall ICD Code: W19.XXXA - Unspecified fall, initial encounter Status: Resolved Assessment and Plan This is a 66-year-old female with a recent right hemisphere CVA. She was recently discharged from [facility]. While at home she fell and was admitted back to the hospital. Both PT and OT are not recommending that she return to [facility] for continued inpatient physical therapy. Occlusion of right middle cerebral artery * Admitted to inpatient * Case management consulted for placement to [facility] for inpatient rehabilitation * Continue home blood pressure medications * Blood pressure goal 130-135/75-80 * Continue Plavix * Continue aspirin * continue telemetry * PT OT following * Neurology consulted, recommendations appreciated Discharged to [facility] case management consulted for this placement Marin Arce MD, R3 Feb 12, 2017 12:56
--- NOTE | 2017-02-12 12:56 | HHI.PR ---
Subjective Remarks Patient seen and examined this morning. Afebrile vital signs stable. She is status post CVA, with the recommendations of inpatient rehabilitation. She was recently discharged from [facility] while at home she fell prior to this admission upon evaluation by OT and PT is recommended that she return to [facility] for continued inpatient physical therapy. Objective Vitals Vital Signs Date Time Temp Pulse Resp B/P (MAP) Pulse Ox O2 Delivery O2 Flow Rate FiO2 02/12/17 11:44 97.9 78 20 125/82 (96) 97 02/12/17 09:00 98 21 02/12/17 07:49 98.2 68 18 128/80 (96) 96 02/12/17 04:51 21 02/12/17 04:41 97.7 78 19 122/65 (84) 97 02/12/17 04:00 91 02/12/17 00:18 72 02/12/17 00:16 97.6 80 18 133/66 (88) 95 02/11/17 21:32 97.6 77 18 145/68 (93) 96 02/11/17 20:02 69 02/11/17 15:17 58 Result Diagram: 02/12/17 0620 02/12/17 0620 Imaging Last Impressions Neck Magnetic Resonance Angiography 02/10/171634 Signed Impressions: Service Date/Time: February 18:08 - CONCLUSION: 1. Occlusion of the right internal carotid artery right after the origin. 2. Mild to moderate plaque in left common carotid artery with approximate 50%% stenosis. 3. Please see MRA of the brain for further details on the intracranial circulation. Dariusz Mora MD Head Magnetic Resonance Angiography 02/10/171634 Signed Impressions: Service Date/Time: February 18:08 - CONCLUSION: 1. Occlusion of the right internal carotid artery and right middle cerebral artery. 2. Portions of the right anterior communicating artery are abnormal 3. There is no right posterior communicating artery. 4. The left posterior cerebral artery is smaller in size than the right and the distal posterior branches are absent. Dariusz Mora MD Brain MRI 02/10/171634 Signed Impressions: Service Date/Time: February 18:08 - CONCLUSION: 1. Acute to subacute infarction involving the right middle cerebral artery territory with edema. There is no mass effect or midline shift. 2. No evidence of hemorrhage. Dariusz Mora MD Head CT 02/10/170 Signed Impressions: Service Date/Time: February 15:57 - CONCLUSION: 1. Areas of low attenuation in the right frontal lobe could be subacute infarct. Contrast MRI recommended. 2. No midline shift or mass effect. 3. No hemorrhage seen. Arnie Lacy MD Chest X-Ray 02/10/171529 Signed Impressions: Service Date/Time: February 15:45 - CONCLUSION: 1. Minimal right basilar atelectasis. Arnie Lacy MD Objective Remarks GENERAL: Awake, alert, oriented and good historian. Not in acute distress. HEAD, EYES, EARS, NOSE, THROAT: Normocephalic and atraumatic. Intact hearing. Intact vision. NECK: The neck is supple. No signs of meningeal irritation. CARDIOVASCULAR: Regular rate and rhythm. RESPIRATORY: Clear to auscultation. No wheezes. GASTROINTESTINAL: The abdomen is soft, nontender. EXTREMITIES: Weakness on the entire left side upper and lower extremities. No cyanosis. No clubbing. NEUROLOGICAL EXAMINATION: Awake, alert and oriented to time, person and place. No dysphasia. mild dysarthria. Left facial palsy. Intact facial sensation. Left upper and lower extremity pyramidal spastic weakness, upper extremities greater than lower extremities. Cerebellar function intact, slower on the left side. Intact sensation bilateral throughout. PSYCHIATRIC: Cooperative. Normal mood and behavior. A/P Problem List: (1) Occlusion of right middle cerebral artery ICD Code: I66.01 - Occlusion and stenosis of right middle cerebral artery Status: Acute (2) Acute cerebrovascular accident (CVA) ICD Code: I63.9 - Cerebral infarction, unspecified Status: Acute (3) Impaired mobility and activities of daily living ICD Code: Z74.09 - Other reduced mobility Status: Acute (4) Gait instability ICD Code: R26.81 - Unsteadiness on feet Status: Acute (5) Right hemisphere, cerebral infarction ICD Code: I63.9 - Cerebral infarction, unspecified Status: Acute (6) Fall ICD Code: W19.XXXA - Unspecified fall, initial encounter Status: Resolved Assessment and Plan This is a 66-year-old female with a recent right hemisphere CVA. She was recently discharged from [facility]. While at home she fell and was admitted back to the hospital. Both PT and OT are not recommending that she return to [facility] for continued inpatient physical therapy. Occlusion of right middle cerebral artery * Admitted to inpatient * Case management consulted for placement to [facility] for inpatient rehabilitation * Continue home blood pressure medications * Blood pressure goal 130-135/75-80 * Continue Plavix * Continue aspirin * continue telemetry * PT OT following * Neurology consulted, recommendations appreciated Discharged to [facility] case management consulted for this placement Marin Arce MD, R3 Feb 12, 2017 12:56
[2017-02-12] MEDS: DEXT 5%-NACL 0.45% 1000 ML INJ 1,000 ML IV SCH (17:32)
[2017-02-12] MEDS ORDERED: cloNIDine HCL 0.1 MG TAB PO PRN (18:15)
[2017-02-12] MEDS: LISINOPRIL 10 MG TAB PO SCH (18:20)
[2017-02-12] MEDS: METOPROLOL TARTRATE 25 MG TAB PO SCH (21:08)
[2017-02-12] MEDS: ATORVASTATIN 20 MG TAB PO SCH (21:08)
[2017-02-13] VITALS (9 sets, daily range): BP systolic 123–160; BP diastolic 56–78; PULSE 55–78; RESP 18–20; TEMP 97.7–98.6; O2SAT 93–96
[2017-02-13] MEDS: DOCUSATE SODIUM 50 MG/SENNA 8.6 MG TAB PO SCH ×2 (07:08→21:15)
[2017-02-13] MEDS: HEPARIN SODIUM - SQ 10,000 UNITS/ML VIAL SQ SCH ×2 (07:56→21:05)
[2017-02-13] MEDS: SODIUM CHLORIDE 0.9% FLUSH 10 ML FLUSH IV FLUSH SCH ×2 (07:56→21:15)
[2017-02-13] MEDS: FAMOTIDINE 20 MG TAB PO SCH ×2 (07:57→21:04)
[2017-02-13] MEDS: CLOPIDOGREL 75 MG TAB PO SCH (07:57)
[2017-02-13] MEDS: METOPROLOL TARTRATE 25 MG TAB PO SCH ×2 (07:57→21:04)
[2017-02-13] MEDS: LISINOPRIL 10 MG TAB PO SCH (07:57)
[2017-02-13 09:46] LABS: AUTOMATED NEUTROPHIL # 2.7 TH/MM3 (1.8-7.7); BASOPHIL # 0.1 TH/MM3 (0-0.2); BASOPHIL % 0.9 % (0.0-2.0); EOSINOPHIL # 0.2 TH/MM3 (0-0.4); EOSINOPHIL % 3.2 % (0.0-4.0); HEMATOCRIT 37.8 % (35.0-46.0); HEMOGLOBIN 12.6 GM/DL (11.6-15.3); LYMPH % 33.1 % (9.0-44.0); LYMPHOCYTE # 1.8 TH/MM3 (1.0-4.8); MEAN CELL VOLUME 84.9 FL (80.0-100.0); MEAN CORPUSCULAR HEMOGLOBIN 28.4 PG (27.0-34.0); MEAN CORPUSCULAR HGB CONC 33.4 % (32.0-36.0); MEAN PLATELET VOLUME 8.8 FL (7.0-11.0); MONO % 12.8 % (0.0-8.0); MONOCYTE # 0.7 TH/MM3 (0-0.9); PLATELET COUNT 178 TH/MM3 (150-450); RED BLOOD COUNT 4.45 MIL/MM3 (4.00-5.30); WHITE BLOOD COUNT 5.3 TH/MM3 (4.0-11.0)
[2017-02-13 10:48] LABS: BICARBONATE 25.1 MEQ/L (21.0-32.0); CREATININE 0.63 MG/DL (0.50-1.00)
--- NOTE | 2017-02-13 11:50 | HHI.PR ---
Subjective Remarks Patient seen and examined this morning. Afebrile vital signs stable. Current plan is to discharge to intermediate facility family is evaluating the [facility] nursing facility. Patient is unable to go to [facility] due to her time there being used up on her insurance. Case management is working with patient and family for placement to intermediate facility. It is currently the recommendations of both PT and OT that she do inpatient rehabilitation. Objective Vitals Vital Signs Date Time Temp Pulse Resp B/P (MAP) Pulse Ox O2 Delivery O2 Flow Rate FiO2 02/13/17 08:33 55 02/13/17 08:00 97.8 62 18 127/60 (82) 95 02/13/17 07:44 93 21 02/13/17 05:21 97.7 59 18 123/56 (78) 95 02/13/17 00:25 98.0 59 18 125/58 (80) 02/12/17 21:08 72 02/12/17 20:53 98.1 85 20 136/75 (95) 98 02/12/17 17:39 98.0 91 18 170/86 (114) 99 02/12/17 15:50 97.9 74 18 164/79 (107) 96 Result Diagram: 02/13/1740 02/13/17839 Imaging Last Impressions Neck Magnetic Resonance Angiography 02/10/171634 Signed Impressions: Service Date/Time: February 18:08 - CONCLUSION: 1. Occlusion of the right internal carotid artery right after the origin. 2. Mild to moderate plaque in left common carotid artery with approximate 50%% stenosis. 3. Please see MRA of the brain for further details on the intracranial circulation. Dariusz Mora MD Head Magnetic Resonance Angiography 02/10/171634 Signed Impressions: Service Date/Time: February 18:08 - CONCLUSION: 1. Occlusion of the right internal carotid artery and right middle cerebral artery. 2. Portions of the right anterior communicating artery are abnormal 3. There is no right posterior communicating artery. 4. The left posterior cerebral artery is smaller in size than the right and the distal posterior branches are absent. Dariusz Mora MD Brain MRI 02/10/171634 Signed Impressions: Service Date/Time: February 18:08 - CONCLUSION: 1. Acute to subacute infarction involving the right middle cerebral artery territory with edema. There is no mass effect or midline shift. 2. No evidence of hemorrhage. Dariusz Mora MD Head CT 02/10/171529 Signed Impressions: Service Date/Time: February 15:57 - CONCLUSION: 1. Areas of low attenuation in the right frontal lobe could be subacute infarct. Contrast MRI recommended. 2. No midline shift or mass effect. 3. No hemorrhage seen. Arnie Lacy MD Chest X-Ray 02/10/171529 Signed Impressions: Service Date/Time: February 15:45 - CONCLUSION: 1. Minimal right basilar atelectasis. Arnie Lacy MD Objective Remarks GENERAL: Awake, alert, oriented and good historian. Not in acute distress. HEAD, EYES, EARS, NOSE, THROAT: Normocephalic and atraumatic. Intact hearing. Intact vision. NECK: The neck is supple. No signs of meningeal irritation. CARDIOVASCULAR: Regular rate and rhythm. RESPIRATORY: Clear to auscultation. No wheezes. GASTROINTESTINAL: The abdomen is soft, nontender. EXTREMITIES: Weakness on the entire left side upper and lower extremities. No cyanosis. No clubbing. NEUROLOGICAL EXAMINATION: Awake, alert and oriented to time, person and place. No dysphasia. mild dysarthria. Left facial palsy. Intact facial sensation. Left upper and lower extremity pyramidal spastic weakness, upper extremities greater than lower extremities. Cerebellar function intact, slower on the left side. Intact sensation bilateral throughout. PSYCHIATRIC: Cooperative. Normal mood and behavior. Medications and IVs Current Medications Medications (Trade) Dose Ordered Sig/Bebo Route Start Time Stop Time Status Last Admin (Plavix) 75 mg DAILY PO 02/11/17 09:00 02/13/17 07:57 (Lipitor) 20 mg HS PO 02/10/17 21:00 02/12/17 21:08 (Pepcid) 20 mg BID PO 02/10/17 21:00 02/13/17 07:57 (NS Flush) 2 ml UNSCH PRN IV FLUSH 02/10/17 20:15 (NS Flush) 2 ml BID IV FLUSH 02/10/17 21:00 02/11/17 21:23 (Tylenol) 650 mg Q4H PRN PO 02/10/17 20:15 (Zofran Inj) 4 mg Q6H PRN IVP 02/10/17 20:15 (Ambien) 5 mg HS PRN PO 02/10/17 20:15 (Heparin Inj) 5,000 units Q12H SQ 02/11/17 08:15 02/13/17 07:56 (Narcan Inj) 0.4 mg UNSCH PRN IV PUSH 02/10/17 20:15 (Magnolia-Colace) 1 tab BID PO 02/10/17 21:00 02/12/17 21:08 (Milk Of Magnesia Liq) 30 ml Q12H PRN PO 02/10/17 20:15 (Senokot) 17.2 mg Q12H PRN PO 02/10/17 20:15 (Dulcolax Supp) 10 mg DAILY PRN RECTAL 02/10/17 20:15 (Lactulose Liq) 30 ml DAILY PRN PO 02/10/17 20:15 (Ativan) 0.5 mg Q8H PRN PO 02/10/17 20:30 Dextrose/Sodium Chloride 1,000 ml @ 42 mls/hr [id number] IV 02/10/17 21:00 02/12/17 17:32 ([place] 5-325 Mg) 1 tab Q4H PRN PO 02/10/17 20:30 (Prinivil) 10 mg DAILY PO 02/12/17 18:15 02/13/17 07:57 (Lopressor) 12.5 mg BID PO 02/12/17 21:00 02/13/17 07:57 (Catapres) 0.1 mg Q6H PRN PO 02/12/17 18:15 A/P Problem List: (1) Occlusion of right middle cerebral artery ICD Code: I66.01 - Occlusion and stenosis of right middle cerebral artery Status: Acute (2) Acute cerebrovascular accident (CVA) ICD Code: I63.9 - Cerebral infarction, unspecified Status: Acute (3) Impaired mobility and activities of daily living ICD Code: Z74.09 - Other reduced mobility Status: Acute (4) Gait instability ICD Code: R26.81 - Unsteadiness on feet Status: Acute (5) Right hemisphere, cerebral infarction ICD Code: I63.9 - Cerebral infarction, unspecified Status: Acute (6) Fall ICD Code: W19.XXXA - Unspecified fall, initial encounter Status: Resolved Assessment and Plan This is a 66-year-old female with a recent right hemisphere CVA. She was recently discharged from [facility]. While at home she fell and was admitted back to the hospital. Both PT and OT are now recommending that she return to [facility] for continued inpatient physical therapy. Unfortunately patient has used up all of her days for [place] [facility] and cannot return there. It is currently the plan to discharge to intermediate facility, patient's family is evaluating facility in [place]. Occlusion of right middle cerebral artery * Admitted to inpatient * Case management consulted for placement to intermediate facility * Continue home blood pressure medications * Clonidine when necessary per protocol * Blood pressure goal 130-135/75-80 * Continue Plavix * Continue aspirin * continue telemetry * PT OT following * Neurology consulted, recommendations appreciated Discharged to intermediate facility for inpatient rehabilitation, case management consulted for this placement Discharge Planning Discharge to intermediate facility once placement is available, case management is working on this Marin Arce MD, R3 Feb 13, 2017 11:50
--- NOTE | 2017-02-13 11:50 | HHI.PR ---
Subjective Remarks Patient seen and examined this morning. Afebrile vital signs stable. Current plan [facility] to [facility] to [facility] family is evaluating the [facility] nursing facility. Patient is unable to go to [facility] due to her time there being used up on her insurance. Case management is working with patient and family for placement to penitentiary facility. It is currently the recommendations of both PT and OT that she do inpatient rehabilitation. Objective Vitals Vital Signs Date Time Temp Pulse Resp B/P (MAP) Pulse Ox O2 Delivery O2 Flow Rate FiO2 02/13/17 08:33 55 02/13/17 08:00 97.8 62 18 127/60 (82) 95 02/13/17 07:44 93 21 02/13/17 05:21 97.7 59 18 123/56 (78) 95 02/13/17 00:25 98.0 59 18 125/58 (80) 02/12/17 21:08 72 02/12/17 20:53 98.1 85 20 136/75 (95) 98 02/12/17 17:39 98.0 91 18 170/86 (114) 99 02/12/17 15:50 97.9 74 18 164/79 (107) 96 Result Diagram: 02/13/1740 02/13/17839 Imaging Last Impressions Neck Magnetic Resonance Angiography 02/10/171634 Signed Impressions: Service Date/Time: February 18:08 - CONCLUSION: 1. Occlusion of the right internal carotid artery right after the origin. 2. Mild to moderate plaque in left common carotid artery with approximate 50%% stenosis. 3. Please see MRA of the brain for further details on the intracranial circulation. Dariusz Mora MD Head Magnetic Resonance Angiography 02/10/171634 Signed Impressions: Service Date/Time: February 18:08 - CONCLUSION: 1. Occlusion of the right internal carotid artery and right middle cerebral artery. 2. Portions of the right anterior communicating artery are abnormal 3. There is no right posterior communicating artery. 4. The left posterior cerebral artery is smaller in size than the right and the distal posterior branches are absent. Dariusz Mora MD Brain MRI 02/10/171634 Signed Impressions: Service Date/Time: February 18:08 - CONCLUSION: 1. Acute to subacute infarction involving the right middle cerebral artery territory with edema. There is no mass effect or midline shift. 2. No evidence of hemorrhage. Dariusz Mora MD Head CT 02/10/171529 Signed Impressions: Service Date/Time: February 15:57 - CONCLUSION: 1. Areas of low attenuation in the right frontal lobe could be subacute infarct. Contrast MRI recommended. 2. No midline shift or mass effect. 3. No hemorrhage seen. Arnie Lacy MD Chest X-Ray 02/10/171529 Signed Impressions: Service Date/Time: February 15:45 - CONCLUSION: 1. Minimal right basilar atelectasis. Arnie Lacy MD Objective Remarks GENERAL: Awake, alert, oriented and good historian. Not in acute distress. HEAD, EYES, EARS, NOSE, THROAT: Normocephalic and atraumatic. Intact hearing. Intact vision. NECK: The neck is supple. No signs of meningeal irritation. CARDIOVASCULAR: Regular rate and rhythm. RESPIRATORY: Clear to auscultation. No wheezes. GASTROINTESTINAL: The abdomen is soft, nontender. EXTREMITIES: Weakness on the entire left side upper and lower extremities. No cyanosis. No clubbing. NEUROLOGICAL EXAMINATION: Awake, alert and oriented to time, person and place. No dysphasia. mild dysarthria. Left facial palsy. Intact facial sensation. Left upper and lower extremity pyramidal spastic weakness, upper extremities greater than lower extremities. Cerebellar function intact, slower on the left side. Intact sensation bilateral throughout. PSYCHIATRIC: Cooperative. Normal mood and behavior. Medications and IVs Current Medications Medications (Trade) Dose Ordered Sig/Bebo Route Start Time Stop Time Status Last Admin (Plavix) 75 mg DAILY PO 02/11/17 09:00 02/13/17 07:57 (Lipitor) 20 mg HS PO 02/10/17 21:00 02/12/17 21:08 (Pepcid) 20 mg BID PO 02/10/17 21:00 02/13/17 07:57 (NS Flush) 2 ml UNSCH PRN IV FLUSH 02/10/17 20:15 (NS Flush) 2 ml BID IV FLUSH 02/10/17 21:00 02/11/17 21:23 (Tylenol) 650 mg Q4H PRN PO 02/10/17 20:15 (Zofran Inj) 4 mg Q6H PRN IVP 02/10/17 20:15 (Ambien) 5 mg HS PRN PO 02/10/17 20:15 (Heparin Inj) 5,000 units Q12H SQ 02/11/17 08:15 02/13/17 07:56 (Narcan Inj) 0.4 mg UNSCH PRN IV PUSH 02/10/17 20:15 (Magnolia-Colace) 1 tab BID PO 02/10/17 21:00 02/12/17 21:08 (Milk Of Magnesia Liq) 30 ml Q12H PRN PO 02/10/17 20:15 (Senokot) 17.2 mg Q12H PRN PO 02/10/17 20:15 (Dulcolax Supp) 10 mg DAILY PRN RECTAL 02/10/17 20:15 (Lactulose Liq) 30 ml DAILY PRN PO 02/10/17 20:15 (Ativan) 0.5 mg Q8H PRN PO 02/10/17 20:30 Dextrose/Sodium Chloride 1,000 ml @ 42 mls/hr [id number] IV 02/10/17 21:00 02/12/17 17:32 ([place] 5-325 Mg) 1 tab Q4H PRN PO 02/10/17 20:30 (Prinivil) 10 mg DAILY PO 02/12/17 18:15 02/13/17 07:57 (Lopressor) 12.5 mg BID PO 02/12/17 21:00 02/13/17 07:57 (Catapres) 0.1 mg Q6H PRN PO 02/12/17 18:15 A/P Problem List: (1) Occlusion of right middle cerebral artery ICD Code: I66.01 - Occlusion and stenosis of right middle cerebral artery Status: Acute (2) Acute cerebrovascular accident (CVA) ICD Code: I63.9 - Cerebral infarction, unspecified Status: Acute (3) Impaired mobility and activities of daily living ICD Code: Z74.09 - Other reduced mobility Status: Acute (4) Gait instability ICD Code: R26.81 - Unsteadiness on feet Status: Acute (5) Right hemisphere, cerebral infarction ICD Code: I63.9 - Cerebral infarction, unspecified Status: Acute (6) Fall ICD Code: W19.XXXA - Unspecified fall, initial encounter Status: Resolved Assessment and Plan This is a 66-year-old female with a recent right hemisphere CVA. She was recently discharged from [facility]. While at home she fell and was admitted back to the hospital. Both PT and OT are now recommending that she return to [facility] for continued inpatient physical therapy. Unfortunately patient has used up all of her days for [place] rehabilitation and cannot return there. It is currently the plan to discharge to penitentiary facility, patient's family is evaluating facility in [place]. Occlusion of right middle cerebral artery * Admitted to inpatient * Case management consulted for placement to penitentiary facility * Continue home blood pressure medications * Clonidine when necessary per protocol * Blood pressure goal 130-135/75-80 * Continue Plavix * Continue aspirin * continue telemetry * PT OT following * Neurology consulted, recommendations appreciated Discharged to penitentiary facility for inpatient rehabilitation, case management consulted for this placement Discharge Planning Discharge to penitentiary facility once placement is available, case management is working on this Marin Arce MD, R3 Feb 13, 2017 11:50
--- NOTE | 2017-02-13 11:50 | HHI.PR ---
Subjective Remarks Patient seen and examined this morning. Afebrile vital signs stable. Current plan is to discharge to snf facility family is evaluating the [facility] nursing facility. Patient is unable to go to [facility] due to her time there being used up on her insurance. Case management is working with patient and family for placement to snf facility. It is currently the recommendations of both PT and OT that she do inpatient rehabilitation. Objective Vitals Vital Signs Date Time Temp Pulse Resp B/P (MAP) Pulse Ox O2 Delivery O2 Flow Rate FiO2 02/13/17 08:33 55 02/13/17 08:00 97.8 62 18 127/60 (82) 95 02/13/17 07:44 93 21 02/13/17 05:21 97.7 59 18 123/56 (78) 95 02/13/17 00:25 98.0 59 18 125/58 (80) 02/12/17 21:08 72 02/12/17 20:53 98.1 85 20 136/75 (95) 98 02/12/17 17:39 98.0 91 18 170/86 (114) 99 02/12/17 15:50 97.9 74 18 164/79 (107) 96 Result Diagram: 02/13/1740 02/13/17839 Imaging Last Impressions Neck Magnetic Resonance Angiography 02/10/171634 Signed Impressions: Service Date/Time: February 18:08 - CONCLUSION: 1. Occlusion of the right internal carotid artery right after the origin. 2. Mild to moderate plaque in left common carotid artery with approximate 50%% stenosis. 3. Please see MRA of the brain for further details on the intracranial circulation. Dariusz Mora MD Head Magnetic Resonance Angiography 02/10/171634 Signed Impressions: Service Date/Time: February 18:08 - CONCLUSION: 1. Occlusion of the right internal carotid artery and right middle cerebral artery. 2. Portions of the right anterior communicating artery are abnormal 3. There is no right posterior communicating artery. 4. The left posterior cerebral artery is smaller in size than the right and the distal posterior branches are absent. Dariusz Mora MD Brain MRI 02/10/171634 Signed Impressions: Service Date/Time: February 18:08 - CONCLUSION: 1. Acute to subacute infarction involving the right middle cerebral artery territory with edema. There is no mass effect or midline shift. 2. No evidence of hemorrhage. Dariusz Mora MD Head CT 02/10/171529 Signed Impressions: Service Date/Time: February 15:57 - CONCLUSION: 1. Areas of low attenuation in the right frontal lobe could be subacute infarct. Contrast MRI recommended. 2. No midline shift or mass effect. 3. No hemorrhage seen. Arnie Lacy MD Chest X-Ray 02/10/171529 Signed Impressions: Service Date/Time: February 15:45 - CONCLUSION: 1. Minimal right basilar atelectasis. Arnie Lacy MD Objective Remarks GENERAL: Awake, alert, oriented and good historian. Not in acute distress. HEAD, EYES, EARS, NOSE, THROAT: Normocephalic and atraumatic. Intact hearing. Intact vision. NECK: The neck is supple. No signs of meningeal irritation. CARDIOVASCULAR: Regular rate and rhythm. RESPIRATORY: Clear to auscultation. No wheezes. GASTROINTESTINAL: The abdomen is soft, nontender. EXTREMITIES: Weakness on the entire left side upper and lower extremities. No cyanosis. No clubbing. NEUROLOGICAL EXAMINATION: Awake, alert and oriented to time, person and place. No dysphasia. mild dysarthria. Left facial palsy. Intact facial sensation. Left upper and lower extremity pyramidal spastic weakness, upper extremities greater than lower extremities. Cerebellar function intact, slower on the left side. Intact sensation bilateral throughout. PSYCHIATRIC: Cooperative. Normal mood and behavior. Medications and IVs Current Medications Medications (Trade) Dose Ordered Sig/Bebo Route Start Time Stop Time Status Last Admin (Plavix) 75 mg DAILY PO 02/11/17 09:00 02/13/17 07:57 (Lipitor) 20 mg HS PO 02/10/17 21:00 02/12/17 21:08 (Pepcid) 20 mg BID PO 02/10/17 21:00 02/13/17 07:57 (NS Flush) 2 ml UNSCH PRN IV FLUSH 02/10/17 20:15 (NS Flush) 2 ml BID IV FLUSH 02/10/17 21:00 02/11/17 21:23 (Tylenol) 650 mg Q4H PRN PO 02/10/17 20:15 (Zofran Inj) 4 mg Q6H PRN IVP 02/10/17 20:15 (Ambien) 5 mg HS PRN PO 02/10/17 20:15 (Heparin Inj) 5,000 units Q12H SQ 02/11/17 08:15 02/13/17 07:56 (Narcan Inj) 0.4 mg UNSCH PRN IV PUSH 02/10/17 20:15 (Magnolia-Colace) 1 tab BID PO 02/10/17 21:00 02/12/17 21:08 (Milk Of Magnesia Liq) 30 ml Q12H PRN PO 02/10/17 20:15 (Senokot) 17.2 mg Q12H PRN PO 02/10/17 20:15 (Dulcolax Supp) 10 mg DAILY PRN RECTAL 02/10/17 20:15 (Lactulose Liq) 30 ml DAILY PRN PO 02/10/17 20:15 (Ativan) 0.5 mg Q8H PRN PO 02/10/17 20:30 Dextrose/Sodium Chloride 1,000 ml @ 42 mls/hr [id number] IV 02/10/17 21:00 02/12/17 17:32 ([place] 5-325 Mg) 1 tab Q4H PRN PO 02/10/17 20:30 (Prinivil) 10 mg DAILY PO 02/12/17 18:15 02/13/17 07:57 (Lopressor) 12.5 mg BID PO 02/12/17 21:00 02/13/17 07:57 (Catapres) 0.1 mg Q6H PRN PO 02/12/17 18:15 A/P Problem List: (1) Occlusion of right middle cerebral artery ICD Code: I66.01 - Occlusion and stenosis of right middle cerebral artery Status: Acute (2) Acute cerebrovascular accident (CVA) ICD Code: I63.9 - Cerebral infarction, unspecified Status: Acute (3) Impaired mobility and activities of daily living ICD Code: Z74.09 - Other reduced mobility Status: Acute (4) Gait instability ICD Code: R26.81 - Unsteadiness on feet Status: Acute (5) Right hemisphere, cerebral infarction ICD Code: I63.9 - Cerebral infarction, unspecified Status: Acute (6) Fall ICD Code: W19.XXXA - Unspecified fall, initial encounter Status: Resolved Assessment and Plan This is a 66-year-old female with a recent right hemisphere CVA. She was recently discharged from [facility]. While at home she fell and was admitted back to the hospital. Both PT and OT are now recommending that she return to [facility] for continued inpatient physical therapy. Unfortunately patient has used up all of her days for [place] [facility] and cannot return there. It is currently the plan to discharge to snf facility, patient's family is evaluating facility in [place]. Occlusion of right middle cerebral artery * Admitted to inpatient * Case management consulted for placement to snf facility * Continue home blood pressure medications * Clonidine when necessary per protocol * Blood pressure goal 130-135/75-80 * Continue Plavix * Continue aspirin * continue telemetry * PT OT following * Neurology consulted, recommendations appreciated Discharged to snf facility for inpatient rehabilitation, case management consulted for this placement Discharge Planning Discharge to snf facility once placement is available, case management is working on this Marin Arce MD, R3 Feb 13, 2017 11:50
[2017-02-13] MEDS: ATORVASTATIN 20 MG TAB PO SCH (21:04)
[2017-02-13] MEDS: DEXT 5%-NACL 0.45% 1000 ML INJ 1,000 ML IV SCH (21:05)
[2017-02-14 00:53] VITALS: BP 132/62; PULSE 57; RESP 18; TEMP 98.3; O2SAT 95
[2017-02-14 06:09] VITALS: BP 142/66; PULSE 58; RESP 18; TEMP 98; O2SAT 95
[2017-02-14 08:01] VITALS: PULSE 47
[2017-02-14 08:28] VITALS: BP 134/61; PULSE 63; RESP 20; TEMP 97.3; O2SAT 93
[2017-02-14] MEDS: HEPARIN SODIUM - SQ 10,000 UNITS/ML VIAL SQ SCH (08:52)
[2017-02-14] MEDS: METOPROLOL TARTRATE 25 MG TAB PO SCH (08:52)
[2017-02-14] MEDS: SODIUM CHLORIDE 0.9% FLUSH 10 ML FLUSH IV FLUSH SCH (08:52)
[2017-02-14] MEDS: FAMOTIDINE 20 MG TAB PO SCH (08:53)
[2017-02-14] MEDS: CLOPIDOGREL 75 MG TAB PO SCH (08:53)
[2017-02-14] MEDS: DOCUSATE SODIUM 50 MG/SENNA 8.6 MG TAB PO SCH (08:53)
[2017-02-14] MEDS: LISINOPRIL 10 MG TAB PO SCH (08:53)
--- NOTE | 2017-02-14 09:55 | HHI.DCPOC ---
Discharge Care Plan Diagnosis: (1) Impaired memory (2) HTN (hypertension) (3) Diastolic dysfunction (4) Left hemiparesis (5) Carotid stenosis, bilateral (6) Occlusion of right middle cerebral artery (7) Acute cerebrovascular accident (CVA) (8) Fall (9) Right hemisphere, cerebral infarction (10) Gait instability (11) Impaired mobility and activities of daily living (12) Tobacco abuse Goals to Promote Your Health * To prevent worsening of your condition and complications * To maintain your health at the optimal level Directions to Meet Your Goals Take your medications as prescribed Follow your dietary instruction Follow activity as directed Keep your appointments as scheduled Take your immunizations and boosters as scheduled If your symptoms worsen call your PCP, if no PCP go to Urgent Care Center or Emergency Room Smoking is Dangerous to Your Health. Avoid second hand smoke Call the 24-hour hour crisis hotline for domestic abuse at [address] Chang MD Feb 14, 2017 09:55
--- NOTE | 2017-02-14 09:55 | HHI.DCPOC ---
Discharge Care Plan Diagnosis: (1) Impaired memory (2) HTN (hypertension) (3) Diastolic dysfunction (4) Left hemiparesis (5) Carotid stenosis, bilateral (6) Occlusion of right middle cerebral artery (7) Acute cerebrovascular accident (CVA) (8) Fall (9) Right hemisphere, cerebral infarction (10) Gait instability (11) Impaired mobility and activities of daily living (12) Tobacco abuse Goals to Promote Your Health * To prevent worsening of your condition and complications * To maintain your health at the optimal level Directions to Meet Your Goals Take your medications as prescribed Follow your dietary instruction Follow activity as directed Keep your appointments as scheduled Take your immunizations and boosters as scheduled If your symptoms worsen call your PCP, if no PCP go to Urgent Care Center or Emergency Room Smoking is Dangerous to Your Health. Avoid second hand smoke Call the 24-hour hour crisis hotline for domestic abuse at [address] Chang MD Feb 14, 2017 09:55
--- NOTE | 2017-02-14 09:55 | HHI.DCPOC ---
Discharge Care Plan Diagnosis: (1) Impaired memory (2) HTN (hypertension) (3) Diastolic dysfunction (4) Left hemiparesis (5) Carotid stenosis, bilateral (6) Occlusion of right middle cerebral artery (7) Acute cerebrovascular accident (CVA) (8) Fall (9) Right hemisphere, cerebral infarction (10) Gait instability (11) Impaired mobility and activities of daily living (12) Tobacco abuse Goals to Promote Your Health * To prevent worsening of your condition and complications * To maintain your health at the optimal level Directions to Meet Your Goals Take your medications as prescribed Follow your dietary instruction Follow activity as directed Keep your appointments as scheduled Take your immunizations and boosters as scheduled If your symptoms worsen call your PCP, if no PCP go to Urgent Care Center or Emergency Room Smoking is Dangerous to Your Health. Avoid second hand smoke Call the 24-hour hour crisis hotline for domestic abuse at [address] Chang MD Feb 14, 2017 09:55
[2017-02-14] MEDS ORDERED: ASPI81TA23 PO (09:58)
[2017-02-14] MEDS ORDERED: PLAV75TA29 PO (09:58)
--- NOTE | 2017-02-14 10:00 | HHI.DS ---
Discharge Summary Admission Date Feb 12, 2017 at 12:52 Discharge Date: Feb 14, 2017 Admitting Diagnosis CVA (1) Occlusion of right middle cerebral artery ICD Codes: I66.01 - Occlusion and stenosis of right middle cerebral artery Status: Acute (2) Acute cerebrovascular accident (CVA) ICD Codes: I63.9 - Cerebral infarction, unspecified Status: Acute (3) Impaired mobility and activities of daily living ICD Codes: Z74.09 - Other reduced mobility Status: Acute (4) Gait instability ICD Codes: R26.81 - Unsteadiness on feet Status: Acute (5) Right hemisphere, cerebral infarction ICD Codes: I63.9 - Cerebral infarction, unspecified Status: Acute (6) Fall ICD Codes: W19.XXXA - Unspecified fall, initial encounter Status: Resolved CBC/BMP: 02/13/17 0840 02/13/17 0840 Significant Findings Laboratory Tests Test 02/12/17 06:20 02/13/17 08:40 Monocytes (%) (Auto) 12.4 % (0.0-8.0) 12.8 % (0.0-8.0) Estimat Glomerular Filtration Rate 80 ML/MIN (>89) PE at Discharge GENERAL: SKIN: Warm and dry. HEAD: Atraumatic. Normocephalic. EYES: Pupils equal and round. No scleral icterus. No injection or drainage. ENT: No nasal bleeding or discharge. Mucous membranes pink and moist. NECK: Trachea midline. No JVD. CARDIOVASCULAR: Regular rate and rhythm. RESPIRATORY: No accessory muscle use. Clear to auscultation. Breath sounds equal bilaterally. GASTROINTESTINAL: Abdomen soft, non-tender, nondistended. Hepatic and splenic margins not palpable. MUSCULOSKELETAL: Extremities without clubbing, cyanosis, or edema. No obvious deformities. NEUROLOGICAL: Awake and alert. No obvious cranial nerve deficits. L GAGAN. Normal speech. PSYCHIATRIC: Appropriate mood and affect; insight and judgment normal. Hospital Course 66-year-old female with a recent right hemisphere CVA. She was recently discharged from [facility]. While at home she fell and was admitted back to the hospital. Both PT and OT are now recommending that she return to [facility] for continued inpatient physical therapy. Unfortunately patient has used up all of her days for [place] rehabilitation and cannot return there. It is currently the plan to discharge to alf facility, patient's family is evaluating facility in [place]. Continue home blood pressure medications * Clonidine when necessary per protocol * Blood pressure goal 130-135/75-80 * Continue Plavix * Continue aspirin * continue telemetry * PT OT following * Neurology consulted, recommendations appreciated Discharge to alf facility for inpatient rehabilitation, case management consulted Pt Condition on Discharge: Good Discharge Disposition: Discharge to SNF Discharge Instructions DIET: Follow Instructions for: As Tolerated, No Restrictions Speech Therapy-Diet Recommenda: Mechanical Soft, [place] Thickened Liquids, Chopped Meat w/Gravy Activities you can perform: Regular-No Restrictions Follow up Referrals: Neurology - 2-3 Days with Mckayla Correa MD PCP Follow-up - 2-3 Days New Medications: Aspirin DR (Aspirin EC) 81 Mg Tabdr 81 MG PO DAILY for CVA, #28 TAB 0 Refills Clopidogrel (Plavix) 75 Mg Tab 75 MG PO DAILY for cva for 28 Days, #28 TAB Continued Medications: Atorvastatin (Lipitor) 20 Mg Tab 20 MG PO HS for Cholesterol Management, #30 TAB 0 Refills Famotidine (Pepcid) 20 Mg Tab 20 MG PO BID, #60 TAB 0 Refills Lisinopril (Lisinopril) 10 Mg Tab 10 MG PO DAILY, #30 TAB 0 Refills Metoprolol Tartrate (Metoprolol Tartrate) 25 Mg Tab 12.5 MG PO BID for Blood Pressure Management for 30 Days, TAB 1 Refill Discontinued Medications: Aspirin (Aspirin) 325 Mg Tab 325 MG PO DAILY, #[address] Chang MD Feb 14, 2017 10:00
--- NOTE | 2017-02-14 10:00 | HHI.DS ---
Discharge Summary Admission Date Feb 12, 2017 at 12:52 Discharge Date: Feb 14, 2017 Admitting Diagnosis CVA (1) Occlusion of right middle cerebral artery ICD Codes: I66.01 - Occlusion and stenosis of right middle cerebral artery Status: Acute (2) Acute cerebrovascular accident (CVA) ICD Codes: I63.9 - Cerebral infarction, unspecified Status: Acute (3) Impaired mobility and activities of daily living ICD Codes: Z74.09 - Other reduced mobility Status: Acute (4) Gait instability ICD Codes: R26.81 - Unsteadiness on feet Status: Acute (5) Right hemisphere, cerebral infarction ICD Codes: I63.9 - Cerebral infarction, unspecified Status: Acute (6) Fall ICD Codes: W19.XXXA - Unspecified fall, initial encounter Status: Resolved CBC/BMP: 02/13/17 0840 02/13/17 0840 Significant Findings Laboratory Tests Test 02/12/17 06:20 02/13/17 08:40 Monocytes (%) (Auto) 12.4 % (0.0-8.0) 12.8 % (0.0-8.0) Estimat Glomerular Filtration Rate 80 ML/MIN (>89) PE at Discharge GENERAL: SKIN: Warm and dry. HEAD: Atraumatic. Normocephalic. EYES: Pupils equal and round. No scleral icterus. No injection or drainage. ENT: No nasal bleeding or discharge. Mucous membranes pink and moist. NECK: Trachea midline. No JVD. CARDIOVASCULAR: Regular rate and rhythm. RESPIRATORY: No accessory muscle use. Clear to auscultation. Breath sounds equal bilaterally. GASTROINTESTINAL: Abdomen soft, non-tender, nondistended. Hepatic and splenic margins not palpable. MUSCULOSKELETAL: Extremities without clubbing, cyanosis, or edema. No obvious deformities. NEUROLOGICAL: Awake and alert. No obvious cranial nerve deficits. L GAGAN. Normal speech. PSYCHIATRIC: Appropriate mood and affect; insight and judgment normal. Hospital Course 66-year-old female with a recent right hemisphere CVA. She was recently discharged from [facility]. While at home she fell and was admitted back to the hospital. Both PT and OT are now recommending that she return to [facility] for continued inpatient physical therapy. Unfortunately patient has used up all of her days for [place] rehabilitation and cannot return there. [facility] is [facility], patient's family is evaluating facility in [place]. Continue home blood pressure medications * Clonidine when necessary per protocol * Blood pressure goal 130-135/75-80 * Continue Plavix * Continue aspirin * continue telemetry * PT OT following * Neurology consulted, recommendations appreciated [facility] to [facility], case management consulted Pt Condition on Discharge: Good Discharge Disposition: Discharge to SNF Discharge Instructions DIET: Follow Instructions for: As Tolerated, No Restrictions Speech Therapy-Diet Recommenda: Mechanical Soft, [place] Thickened Liquids, Chopped Meat w/Gravy Activities you can perform: Regular-No Restrictions Follow up Referrals: Neurology - 2-3 Days with Mckayla Correa MD PCP Follow-up - 2-3 Days New Medications: Aspirin DR (Aspirin EC) 81 Mg Tabdr 81 MG PO DAILY for CVA, #28 TAB 0 Refills Clopidogrel (Plavix) 75 Mg Tab 75 MG PO DAILY for cva for 28 Days, #28 TAB Continued Medications: Atorvastatin (Lipitor) 20 Mg Tab 20 MG PO HS for Cholesterol Management, #30 TAB 0 Refills Famotidine (Pepcid) 20 Mg Tab 20 MG PO BID, #60 TAB 0 Refills Lisinopril (Lisinopril) 10 Mg Tab 10 MG PO DAILY, #30 TAB 0 Refills Metoprolol Tartrate (Metoprolol Tartrate) 25 Mg Tab 12.5 MG PO BID for Blood Pressure Management for 30 Days, TAB 1 Refill Discontinued Medications: Aspirin (Aspirin) 325 Mg Tab 325 MG PO DAILY, #[address] Chang MD Feb 14, 2017 10:00
--- NOTE | 2017-02-14 10:00 | HHI.DS ---
Discharge Summary Admission Date Feb 12, 2017 at 12:52 Discharge Date: Feb 14, 2017 Admitting Diagnosis CVA (1) Occlusion of right middle cerebral artery ICD Codes: I66.01 - Occlusion and stenosis of right middle cerebral artery Status: Acute (2) Acute cerebrovascular accident (CVA) ICD Codes: I63.9 - Cerebral infarction, unspecified Status: Acute (3) Impaired mobility and activities of daily living ICD Codes: Z74.09 - Other reduced mobility Status: Acute (4) Gait instability ICD Codes: R26.81 - Unsteadiness on feet Status: Acute (5) Right hemisphere, cerebral infarction ICD Codes: I63.9 - Cerebral infarction, unspecified Status: Acute (6) Fall ICD Codes: W19.XXXA - Unspecified fall, initial encounter Status: Resolved CBC/BMP: 02/13/17 0840 02/13/17 0840 Significant Findings Laboratory Tests Test 02/12/17 06:20 02/13/17 08:40 Monocytes (%) (Auto) 12.4 % (0.0-8.0) 12.8 % (0.0-8.0) Estimat Glomerular Filtration Rate 80 ML/MIN (>89) PE at Discharge GENERAL: SKIN: Warm and dry. HEAD: Atraumatic. Normocephalic. EYES: Pupils equal and round. No scleral icterus. No injection or drainage. ENT: No nasal bleeding or discharge. Mucous membranes pink and moist. NECK: Trachea midline. No JVD. CARDIOVASCULAR: Regular rate and rhythm. RESPIRATORY: No accessory muscle use. Clear to auscultation. Breath sounds equal bilaterally. GASTROINTESTINAL: Abdomen soft, non-tender, nondistended. Hepatic and splenic margins not palpable. MUSCULOSKELETAL: Extremities without clubbing, cyanosis, or edema. No obvious deformities. NEUROLOGICAL: Awake and alert. No obvious cranial nerve deficits. L GAGAN. Normal speech. PSYCHIATRIC: Appropriate mood and affect; insight and judgment normal. Hospital Course 66-year-old female with a recent right hemisphere CVA. She was recently discharged from [facility]. While at home she fell and was admitted back to the hospital. Both PT and OT are now recommending that she return to [facility] for continued inpatient physical therapy. Unfortunately patient has used up all of her days for [place] rehabilitation and cannot return there. It is currently the plan to discharge to [facility] facility, patient's family is evaluating facility in [place]. Continue home blood pressure medications * Clonidine when necessary per protocol * Blood pressure goal 130-135/75-80 * Continue Plavix * Continue aspirin * continue telemetry * PT OT following * Neurology consulted, recommendations appreciated Discharge to [facility] facility for inpatient rehabilitation, case management consulted Pt Condition on Discharge: Good Discharge Disposition: Discharge to SNF Discharge Instructions DIET: Follow Instructions for: As Tolerated, No Restrictions Speech Therapy-Diet Recommenda: Mechanical Soft, [place] Thickened Liquids, Chopped Meat w/Gravy Activities you can perform: Regular-No Restrictions Follow up Referrals: Neurology - 2-3 Days with Mckayla Correa MD PCP Follow-up - 2-3 Days New Medications: Aspirin DR (Aspirin EC) 81 Mg Tabdr 81 MG PO DAILY for CVA, #28 TAB 0 Refills Clopidogrel (Plavix) 75 Mg Tab 75 MG PO DAILY for cva for 28 Days, #28 TAB Continued Medications: Atorvastatin (Lipitor) 20 Mg Tab 20 MG PO HS for Cholesterol Management, #30 TAB 0 Refills Famotidine (Pepcid) 20 Mg Tab 20 MG PO BID, #60 TAB 0 Refills Lisinopril (Lisinopril) 10 Mg Tab 10 MG PO DAILY, #30 TAB 0 Refills Metoprolol Tartrate (Metoprolol Tartrate) 25 Mg Tab 12.5 MG PO BID for Blood Pressure Management for 30 Days, TAB 1 Refill Discontinued Medications: Aspirin (Aspirin) 325 Mg Tab 325 MG PO DAILY, #[address] Chang MD Feb 14, 2017 10:00
[2017-02-14 12:30] VITALS: BP 145/65; PULSE 52; RESP 18; TEMP 98.1; O2SAT 95
== END 2017-02-14 18:42 | DRG 65 ==
LOC: NEPD 13:56 → NEDA 19:23 → UNDOADMIN 19:23 → INTOOBSV 20:16 → NEDA 20:16 → NEPFCDU 21:34 → OBSVTOIN 02-12 12:52 → N05B 02-12 17:27
PROVIDERS: ADMIT Family Medicine; ATTEND Family Medicine
DX: I63.9 Cerebral infarction, unspecified (principal); I69.354 Hemiplegia and hemiparesis following cerebral infarction affecting left non-dominant side; I66.01 Occlusion and stenosis of right middle cerebral artery; R29.810 Facial weakness; R47.81 Slurred speech; I65.21 Occlusion and stenosis of right carotid artery; R26.81 Unsteadiness on feet; I10 Essential (primary) hypertension; Z86.73 Personal history of transient ischemic attack (TIA), and cerebral infarction without residual deficits; Z79.82 Long term (current) use of aspirin; Z87.891 Personal history of nicotine dependence; M25.519 Pain in unspecified shoulder
CPT/HCPCS: 70450; 70544; 70548; 70551; 71010; 80048; 80053; 84443; 85025; 85610; 85730; 93005; A9579; G0378; G8987-GO; G8987-GP; G8988-GO; G8988-GP; G8996-GN; G8997-GN; G8998-GN; J1644